=== PATIENT | male | born 1985 ===

== ENCOUNTER 2018-01-05 14:50 | Emergency (ER) | payer MEDICAID ==
[2018-01-05 14:56] VITALS: RESP 16
[2018-01-05] MEDS ORDERED: Iohexol 240 (50 ml) PO STA (16:08)
[2018-01-05] MEDS ORDERED: Sodium Chloride 0.9% 1,000 ML IV ONE (16:08)
--- NOTE | 2018-01-05 16:08 | C.PDOC ---
History Of Present Illness <Berkley Schwartz - Last Filed: 01/05/18 18:46> <Tomasa Livingstonlenore - Last Filed: 01/05/18 21:18> 32 year old male presents to the ED complaining of acute exacerbated epigastric pain since last night. Patient states history of intermittent epigastric pain for 1 year but current pain is more intense than usual. Associated symptoms include hemetemesis but denies clot. He reports he uses Tums daily. Denies any chronic NSAID use or GI medication use. Denies ETOH use. PSH APPY. Denies fever , diarrhea. ACUTE EXAC EPIG PAIN SINCE LAST NIGHT. PS ZACK INTERMIT EPIG PAIN X 1 YR, CURRENT PAIN MORE INTENSE THAN USUAL. +HEMETEMESIS BUT DENIES CLOT. PS USES TUMS DAILY. DENIES CHRONIC NSAID USE. DENIES ETOH. PSH APPY. NO FEVER, DIARRHEA. DENIES GI MED USE EXAM MILD DIST HEENT NEG ABD +EPIG TEND SOFT NO R/G GOOD TURGOR REMAINDER NEG (ZackBerkley) History Per: Patient History/Exam Limitations: no limitations Onset/Duration Of Symptoms: Days Current Symptoms Are (Timing): Still Present Radiation Of Pain To:: None Associated Symptoms: denies: Fever, Chills, Diarrhea <Berkley Schwartz - Last Filed: 01/05/18 18:46> <LollyleeNaheed - Last Filed: 01/05/18 21:18> Time Seen by Provider: 01/05/18 15:34 Chief Complaint (Nursing): Abdominal Pain Past Medical History Reviewed: Historical Data, Nursing Documentation, Vital Signs - Medical History PMH: Chronic Pain (epigastric pain for one year ) Surgical History: Appendectomy Family History: States: No Known Family Hx - Social History Hx Alcohol Use: Yes Hx Substance Use: Yes - Immunization History Hx Tetanus Toxoid Vaccination: No Hx Influenza Vaccination: No Hx Pneumococcal Vaccination: No <Berkley Schwartz - Last Filed: 01/05/18 18:46> Vital Signs: Last Vital Signs Temp 99.4 F 01/05/18 20:13 Pulse 70 01/05/18 20:13 Resp 16 01/05/18 20:13 BP 115/72 01/05/18 20:13 Pulse Ox 98 01/05/18 20:13 Review Of Systems Except As Marked, All Systems Reviewed And Found Negative. Constitutional: Negative for: Fever Gastrointestinal: Positive for: Abdominal Pain (Epigastric pain ), Hematemesis. Negative for: Diarrhea <Berkley Schwartz - Last Filed: 01/05/18 18:46> Physical Exam - Physical Exam Appears: Other (Mild distress) Skin: Warm, Dry, Other (Good turgor ) Head: Atraumatic, Normacephalic Eye(s): bilateral: Normal Inspection, PERRL, EOMI Ear(s): Bilateral: Normal Nose: Normal Oral Mucosa: Moist Neck: Supple Chest: Symmetrical Cardiovascular: Rhythm Regular Respiratory: Normal Breath Sounds, No Rales, No Rhonchi, No Wheezing Gastrointestinal/Abdominal: Soft, Tenderness (epigastric tenderness ), No Guarding, No Rebound Extremity: Normal ROM Neurological/Psych: Oriented x3, Normal Speech Gait: Steady <Berkley Schwartz Last Filed: 01/05/18 18:46> ED Course And Treatment - Laboratory Results Result Diagrams: 01/05/18 16:27 01/05/18 16:27 O2 Sat by Pulse Oximetry: 100 (RA) Pulse Ox Interpretation: Normal - CT Scan/US US ABD Other Rad Studies (CT/US): Read By Radiologist, Radiology Report Reviewed CT/US Interpretation: Accession No. : [id number]. Patient Name / ID : RADHA SANTOS / [id number]. Exam Date : 01/05/2018 16:44:52 ( Approved ). Study Comment : Sex / Age : M / 32Y. Creator : Buddy Rivera MD. Dictator : Buddy Rivera MD. Advertising Sales Assistant : Spike Machine Feeder : Buddy Rivera MD. Approver2 : Report Date : 01/05/2018 17:18:56. My Comment : . Date of service: 01/05/2018. HISTORY: abd pain. COMPARISON: None. TECHNIQUE: Sonographic evaluation of the right upper quadrant of the abdomen. FINDINGS: LIVER: Measures 16.6 cm in length. Patent portal vein. Portal venous flow: Hepatopetal. Unremarkable echogenicity of the liver parenchyma. No mass. No intrahepatic bile duct dilatation. GALLBLADDER: Unremarkable. No gallstones. COMMON BILE DUCT: Measures 2.1 mm. No stones. No dilatation. PANCREAS: Unremarkable as visualized. No mass. No ductal dilatation. RIGHT KIDNEY: Measures 4.1 x 11.3 cm in length. Normal echogenicity. No calculus, mass, or hydronephrosis. AORTA: No aneurysmal dilatation. IVC: Unremarkable. OTHER FINDINGS: None . IMPRESSION: Unremarkable study is <Berkley Schwartz - Last Filed: 01/05/18 18:46> - Laboratory Results Result Diagrams: 01/05/18 19:47 01/05/18 16:27 Pulse Ox Interpretation: Normal Reevaluation Time: 21:07 Reassessment Condition: Improved <Naheed Livingston - Last Filed: 01/05/18 21:18> Progress - Data Reviewed Data Reviewed: Lab, Diagnostic imaging, Old records <ZackBerkley - Last Filed: 01/05/18 18:46> <Naheed Livingston - Last Filed: 01/05/18 21:18> - Re-Evaluation Re-evaluation Note: 01/05/18 18:47 NO RECUR HEMETEMESIS. VSS. CT PENDING (ZackBerkley) Medical Decision Making <Berkley Schwartz - Last Filed: 01/05/18 18:46> <Naheed Livingston - Last Filed: 01/05/18 21:18> Medical Decision Making: Upon provider reevaluation patient is feeling better, is medically stable, and requires no further treatment in the ED at this time. Patient will be discharged home with Rx for protonix . Counseling was provided and all questions were answered regarding diagnosis and need for follow up with the referred clinic. There is agreement to discharge plan. Return if symptoms persist or worsen. (Naheed Livingston) Disposition Counseled Patient/Family Regarding: Studies Performed, Diagnosis - Disposition Disposition Time: 19:00 <ZackBerkley - Last Filed: 01/05/18 18:46> Counseled Patient/Family Regarding: Studies Performed, Diagnosis, Need For Followup, Rx Given <Naheed Livingsotn - Last Filed: 01/05/18 21:18> - Disposition Referrals: [facility] [Outside] [facility] [Outside] Colton Spicer MD [Staff Provider] - Disposition: HOME/ ROUTINE Condition: STABLE Additional Instructions: Please return if symptoms recur Prescriptions: Pantoprazole Sodium [Protonix] 40 mg PO DAILY #15 ect Instructions: Nausea and Vomiting, Adult, Gastritis (DC), Ulcer and Gastritis Diet Forms: [employer] (Yi) - Clinical Impression Clinical Impression: Abdominal pain, Gastritis - Scribe Statement The provider has reviewed the documentation as recorded by the Scribe <Berkley Schwartz - Last Filed: 01/05/18 18:46> <Naheed Livingston - Last Filed: 01/05/18 21:18> - Scribe Statement Jesika Hyman All medical record entries made by the Scribe were at my direction and personally dictated by me. I have reviewed the chart and agree that the record accurately reflects my personal performance of the history, physical exam, medical decision making, and the department course for this patient. I have also personally directed, reviewed, and agree with the discharge instructions and disposition. (Berkley Schwartz) Physician Patient Turnover Patient Signed Over To: Naheed Livingstno Handoff Comments: SHAWNA VALDEZ, ANTHONYO <Berkley Schwartz - Last Filed: 01/05/18 18:46>
[2018-01-05] MEDS ORDERED: Morphine 4 MG/ML VIAL ONE (16:30)
[2018-01-05] MEDS ORDERED: Iohexol 240 (50 ml) ONE (16:30)
[2018-01-05] MEDS ORDERED: Sodium Chloride 0.9% 1,000 ML ONE (16:31)
[2018-01-05 16:33] LABS: BASO % 0.1 % (0.0-2.0); HEMOGLOBIN 16.9 g/dL (12.0-18.0); LYMPH # 0.6 K/uL (1.0-4.3); MEAN CELL VOLUME 91.5 fL (80.0-94.0); MEAN CORPUSCULAR HEMOGLOBIN 32.4 pg (27.0-31.0); MEAN CORPUSCULAR HGB CONC 35.5 g/dL (33.0-37.0); MEAN PLATELET VOLUME 9.8 fL (7.2-11.7); MONO # 0.4 K/uL (0.0-0.8); MONO % 3.2 % (0.0-10.0); NEUT # 10.9 K/uL (1.8-7.0); NEUT % 91.7 % (50.0-75.0); PLATELET COUNT 164 K/uL (130-400); RBC 5.21 Mil/uL (4.40-5.90); RED CELL DISTRIBUTION WIDTH 13.9 % (11.5-14.5); WHITE BLOOD COUNT 11.9 K/uL (4.8-10.8)
[2018-01-05 16:57] LABS: ALB/GLOB RATIO 1.5 (1.0-2.1); ALBUMIN 5.4 g/dL (3.5-5.0); ALT/SGPT 37 U/L (21-72); AST/SGOT 22 U/L (17-59); BLOOD UREA NITROGEN 18 mg/dL (9-20); CALCIUM 10.5 mg/dl (8.6-10.4); GFR AFRICAN-AMERICAN > 60; GFR NON-AFRICAN AMERICAN > 60; LIPASE 130 U/L (23-300)
--- NOTE | 2018-01-05 17:20 | US ---
Date of service: 01/05/2018 HISTORY: abd pain COMPARISON: None. TECHNIQUE: Sonographic evaluation of the right upper quadrant of the abdomen. FINDINGS: LIVER: Measures 16.6 cm in length. Patent portal vein. Portal venous flow: Hepatopetal. Unremarkable echogenicity of the liver parenchyma. No mass. No intrahepatic bile duct dilatation. GALLBLADDER: Unremarkable. No gallstones. COMMON BILE DUCT: Measures 2.1 mm. No stones. No dilatation. PANCREAS: Unremarkable as visualized. No mass. No ductal dilatation. RIGHT KIDNEY: Measures 4.1 x 11.3 cm in length. Normal echogenicity. No calculus, mass, or hydronephrosis. AORTA: No aneurysmal dilatation. IVC: Unremarkable. OTHER FINDINGS: None . IMPRESSION: Unremarkable study is
[2018-01-05] MEDS ORDERED: Iodixanol 320 MG/ML 100 ML BOTTLE IV ONE (18:30)
[2018-01-05 18:44] LABS: LYMPHOCYTE 2 % (20-40); MONOCYTE 2 % (0-10); NEUTROPHIL 96 % (50-75); PLATELET ESTIMATE NORMAL (NORMAL); TOTAL CELLS COUNTED 100
[2018-01-05 18:55] LABS: URINE BACTERIA OCC (<OCC); URINE BILIRUBIN NEGATIVE (NEGATIVE); URINE BLOOD NEGATIVE (NEGATIVE); URINE CLARITY Clear (Clear); URINE COLOR Yellow (YELLOW); URINE GLUCOSE (UA) NORMAL (Normal); URINE LEUKOCYTE ESTERASE TRACE Leu/uL (Negative); URINE PROTEIN 1+ mg/dL (NEGATIVE); URINE UROBILINOGEN NORMAL mg/dL (0.2-1.0)
[2018-01-05 19:50] LABS: HEMOGLOBIN 15.1 g/dL (12.0-18.0); MEAN CELL VOLUME 93.4 fL (80.0-94.0); MEAN CORPUSCULAR HEMOGLOBIN 32.3 pg (27.0-31.0); MEAN CORPUSCULAR HGB CONC 34.6 g/dL (33.0-37.0); MEAN PLATELET VOLUME 9.6 fL (7.2-11.7); RBC 4.69 Mil/uL (4.40-5.90); RED CELL DISTRIBUTION WIDTH 13.9 % (11.5-14.5); WHITE BLOOD COUNT 11.1 K/uL (4.8-10.8)
[2018-01-05 20:14] VITALS: BP 115/72; PULSE 70; TEMP 99.4; O2SAT 98
--- NOTE | 2018-01-06 09:25 | CT ---
Date of service: 01/05/2018 PROCEDURE: CT Abdomen and Pelvis with intravenous contrast HISTORY: Abdominal pain. COMPARISON: Ultrasound dated 01/05/2018 TECHNIQUE: Multiple contiguous axial images were performed through the abdomen and pelvis with the use of intravenous contrast. Subsequently, sagittal and coronal reformatted images were obtained. Radiation dose: Total exam DLP = 317 mGy-cm. This CT exam was performed using one or more of the following dose reduction techniques: Automated exposure control, adjustment of the mA and/or kV according to patient size, and/or use of iterative reconstruction technique. FINDINGS: LOWER THORAX: Unremarkable. LIVER: Unremarkable. No gross lesion or ductal dilatation. GALLBLADDER AND BILE DUCTS: Unremarkable. PANCREAS: Unremarkable. No gross lesion or ductal dilatation. SPLEEN: Unremarkable. ADRENALS: Unremarkable. No mass. KIDNEYS AND URETERS: Unremarkable. No hydronephrosis. No solid mass. VASCULATURE: Unremarkable. No aortic aneurysm. BOWEL: Unremarkable. No obstruction. No gross mural thickening. Under distended transverse and descending colon. APPENDIX: Not well identified. PERITONEUM: Unremarkable. No free fluid. No free air. LYMPH NODES: Unremarkable. No enlarged lymph nodes. BLADDER: Unremarkable. REPRODUCTIVE: Unremarkable. BONES: No acute fracture. OTHER FINDINGS: None. IMPRESSION: Negative acute. Appendix not well identified. These findings were preliminarily reported at 8:29 p.m. on 01/05/[address] Jenaro Diamond from [facility].
== END 2018-01-05 21:32 | disposition home or self-care (01) ==
LOC: C.ER 14:50
DX: K29.70 Gastritis, unspecified, without bleeding (principal); R10.13 Epigastric pain
CPT/HCPCS: 74177; 76705; 80053; 81001; 83690; 85025; 85027; 96374; 96375; 99284; C9113; J2270; J2405; J7030; Q9966; Q9967

== ENCOUNTER 2018-03-12 23:21 | Inpatient (IN) | payer SELFPAY ==
[2018-03-12 23:54] LABS: BASO # 0.1 K/uL (0.0-0.2); BASO % 0.4 % (0.0-2.0); HEMOGLOBIN 17.6 g/dL (12.0-18.0); LYMPH # 1.3 K/uL (1.0-4.3); LYMPH % 8.8 % (20.0-40.0); MEAN CELL VOLUME 92.7 fL (80.0-94.0); MEAN CORPUSCULAR HEMOGLOBIN 32.2 pg (27.0-31.0); MEAN CORPUSCULAR HGB CONC 34.7 g/dL (33.0-37.0); MEAN PLATELET VOLUME 10.2 fL (7.2-11.7); MONO # 1.2 K/uL (0.0-0.8); MONO % 8.2 % (0.0-10.0); NEUT # 12.1 K/uL (1.8-7.0); NEUT % 82.6 % (50.0-75.0); NRBC % 0.1 % (0.0-2.0); PLATELET COUNT 203 K/uL (130-400); RBC 5.45 Mil/uL (4.40-5.90); WHITE BLOOD COUNT 14.6 K/uL (4.8-10.8)
[2018-03-12] MEDS ORDERED: Sodium Chloride 0.9% 1,000 ML IV ONE (23:58)
--- NOTE | 2018-03-12 23:58 | C.PDOC ---
History Of Present Illness 32 year old male presents to the ED c/o abdominal pain associated with nausea, vomit, and decreased PO intake that started yesterday. Patient reports he ate shrimp from an outside source. Patient also reports feeling chest discomfort with deep breathing that has since resolved. Patient denies fever, chills, diarrhea, recent travel, sick contacts, rash. Time Seen by Provider: 03/12/18 23:57 Chief Complaint (Nursing): Abdominal Pain History Per: Patient History/Exam Limitations: no limitations Onset/Duration Of Symptoms: Days Current Symptoms Are (Timing): Still Present Context: Food Severity: Moderate Pain Scale Rating Of: 4 Location Of Pain/Discomfort: Diffuse Radiation Of Pain To:: None Quality Of Discomfort: Dull, Aching Associated Symptoms: Nausea, Vomiting, Loss Of Appetite. denies: Diarrhea, Urinary Symptoms Exacerbating Factors: Food Alleviating Factors: None Last Bowel Movement: Today Recent travel outside of the [place]: No Additional History Per: Patient, Family Past Medical History Reviewed: Historical Data, Nursing Documentation, Vital Signs Vital Signs: Last Vital Signs Temp 98.1 F 03/12/18 23:22 Pulse 122 H 03/12/18 23:22 Resp 22 03/12/18 23:22 BP 117/84 03/12/18 23:22 Pulse Ox 96 03/12/18 23:22 - Medical History PMH: Chronic Pain (epigastric pain for one year ) Denies: Chronic Kidney Disease Surgical History: Appendectomy Family History: States: Unknown Family Hx - Social History Hx Alcohol Use: Yes Hx Substance Use: Yes - Immunization History Hx Tetanus Toxoid Vaccination: No Hx Influenza Vaccination: No Hx Pneumococcal Vaccination: No Review Of Systems Constitutional: Negative for: Fever, Chills ENT: Negative for: Throat Pain Cardiovascular: Negative for: Chest Pain Respiratory: Negative for: Shortness of Breath Gastrointestinal: Positive for: Nausea, Vomiting, Abdominal Pain. Negative for: Diarrhea Genitourinary: Negative for: Dysuria, Hematuria Musculoskeletal: Negative for: Back Pain Skin: Negative for: Rash Neurological: Negative for: Weakness Psych: Negative for: Anxiety Physical Exam - Physical Exam Appears: Non-toxic, No Acute Distress Skin: Warm, Dry Head: Normacephalic Eye(s): bilateral: Normal Inspection Oral Mucosa: Moist Neck: Supple Chest: Symmetrical Cardiovascular: Rhythm Regular Respiratory: No Rales, No Rhonchi, No Wheezing Gastrointestinal/Abdominal: Soft, Tenderness (mid epigastric), No Guarding, No Rebound Back: Normal Inspection Extremity: Normal ROM Extremity: Bilateral: Atraumatic, Normal Color And Temperature, Normal ROM Neurological/Psych: Oriented x3, Normal Speech, Normal Cognition Gait: Steady ED Course And Treatment - Laboratory Results Result Diagrams: 03/12/18 23:49 03/12/18 23:49 ECG: Interpreted By Me, Viewed By Me ECG Rhythm: Sinus Rhythm (103), Nonspecific Changes O2 Sat by Pulse Oximetry: 96 (ON RA) Pulse Ox Interpretation: Normal Progress Note: Plan: - CT abd/pelvis. - EKG. - Labs. - CXR. - Protonix 40 mg IVP. - IV fluids. - Toradol 30 mg IVP. - Zofran 4 mg IVP. - UA Disposition Discussed With DrJami: Giselle Castro Comment: accepted the pt on his service and took over the care at 6:20AM Doctor Will See Patient In The: Hospital Counseled Patient/Family Regarding: Studies Performed, Diagnosis - Disposition Disposition: HOSPITALIZED Disposition Time: 23:57 Condition: GUARDED Forms: Immunovaccine (Salvadorean) - Clinical Impression Clinical Impression: Abdominal pain, Pneumomediastinum - Scribe Statement The provider has reviewed the documentation as recorded by the Scribe Kings H[place] All medical record entries made by the Scribe were at my direction and personally dictated by me. I have reviewed the chart and agree that the record accurately reflects my personal performance of the history, physical exam, medical decision making, and the department course for this patient. I have also personally directed, reviewed, and agree with the discharge instructions and disposition. Decision To Admit - Pt Status Changed To: Hospital Disposition Of: Inpatient - Admit Certification Admit to Inpatient:: After my assessment, the patient will require hospitalization for at least two midnights. This is because of the severity of symptoms shown, intensity of services needed, and/or the medical risk in this patient being treated as an outpatient. - InPatient: Physician Admission Certification:: After my assessment, the patient will require hospitalization for at least two midnights. This is because of the severity of symptoms shown, intensity of services needed, and/or the medical risk in this patient being treated as an outpatient. - . Bed Request Type: Regular Admitting Physician: Giselle Castro Patient Diagnosis: Abdominal pain, Pneumomediastinum
[2018-03-13 00:22] LABS: CALCIUM 11.1 mg/dl (8.6-10.4)
[2018-03-13 00:42] LABS: ALB/GLOB RATIO 1.4 (1.0-2.1)
[2018-03-13 00:56] LABS: BANDS 1 % (0-2); BASOPHIL 1 % (0-2); LYMPHOCYTE 9 % (20-40); MONOCYTE 6 % (0-10); NEUTROPHIL 82 % (50-75); PLATELET ESTIMATE NORMAL (NORMAL); REACTIVE LYMPHOCYTES 1 % (0-0); TOTAL CELLS COUNTED 100
[2018-03-13] MEDS ORDERED: Iodixanol 320 MG/ML 100 ML BOTTLE IV ONE (01:20)
[2018-03-13] MEDS ORDERED: Sodium Chloride 0.9% 2,000 ML IV ONE (02:39)
[2018-03-13] MEDS ORDERED: Sodium Chloride 0.9% 1,000 ML IV ONE (04:36)
[2018-03-13] MEDS ORDERED: Iohexol 240 (50 ml) PO ONE ×2 (04:36→12:00)
[2018-03-13] MEDS ORDERED: Iohexol 240 (50 ml) ONE (04:41)
[2018-03-13] MEDS ORDERED: Piperacillin/Tazobact 3.375 gm 100 ML IVPB STA (06:02)
[2018-03-13] MEDS ORDERED: Piperacillin/Tazobact 3.375 gm 100 ML IVPB ONE (06:16)
[2018-03-13] MEDS ORDERED: metroNIDAZOLE IV 500 mg/100 ml 500 MG/100 ML BAG IVPB SCH (06:30)
[2018-03-13 06:31] LABS: SQUAMOUS EPITHIAL < 1 /hpf (0-5); URINE BILIRUBIN NEGATIVE (NEGATIVE); URINE BLOOD NEGATIVE (NEGATIVE); URINE CLARITY Clear (Clear); URINE COLOR Yellow (YELLOW); URINE GLUCOSE (UA) NORMAL (Normal); URINE LEUKOCYTE ESTERASE NEG Leu/uL (Negative); URINE PROTEIN 1+ mg/dL (NEGATIVE); URINE UROBILINOGEN NORMAL mg/dL (0.2-1.0)
--- NOTE | 2018-03-13 06:54 | RAD ---
Date of service: 03/13/2018 HISTORY: chest discomfort COMPARISON: No prior. FINDINGS: LUNGS: No active pulmonary disease. PLEURA: No significant pleural effusion identified, no pneumothorax apparent. CARDIOVASCULAR: No atherosclerotic calcification present Normal. OSSEOUS STRUCTURES: No significant abnormalities. VISUALIZED UPPER ABDOMEN: Normal. OTHER FINDINGS: None. IMPRESSION: No active disease.
[2018-03-13] MEDS ORDERED: metroNIDAZOLE IV 500 mg/100 ml 500 MG/100 ML BAG IVPB STA (07:24)
--- NOTE | 2018-03-13 08:25 | RAD ---
Neck soft tissue HISTORY: Pneumomediastinum. COMPARISON: None available. FINDINGS: Air within the soft tissues of the neck bilaterally on the frontal view which may be the sequelae of underlying pneumomediastinum. Subtle lucency along the left heart border and aorta which may represent pneumomediastinum. Correlation with chest CT is recommended for further evaluation if clinically indicated. Questionable lucency at the left lung apex which may be related to patient positioning however subtle tiny left apical pneumothorax cannot be excluded. Repeat study and or dedicated chest PA and lateral view is recommended. Contrast seen extending through the esophagus into the proximal stomach without evidence of leak or extravasation. Heart size within normal limits. Impression: Air within the soft tissues of the neck bilaterally on the frontal view which may be the sequelae of underlying pneumomediastinum. Subtle lucency along the left heart border and aorta which may represent pneumomediastinum. Correlation with chest CT is recommended for further evaluation if clinically indicated. Questionable lucency at the left lung apex which may be related to patient positioning however subtle tiny left apical pneumothorax cannot be excluded. Repeat study and or dedicated chest PA and lateral view is recommended. A preliminary report was generated at 5:28 a.m. on 03/13/[address] Alli Salinas from [facility].
--- NOTE | 2018-03-13 09:09 | CP.PCM.CON ---
History of Present Illness - History of Present Illness History of Present Illness: Asked by Dr. Castro for a GI consultation on this patient. 32 year old male without significant past medical history who presents to hospital with complaint of sudden onset nausea and vomiting which began yesterday at 10 pm. Prior to this he was in usual state of health. He reports eating buffalo wings and shrimp prior to symptom onset along with 1 beer and started developing epigastric discomfort with nearly 30 episodes of vomiting and severe retching. Since arrival to hospital he has not had any further vomiting. He denies fever/chills, weight loss, rectal bleeding, diarrhea, weight loss, or change in bowel habits. No prior endoscopic evaluation. Of note, patient does report intermittent epigastric pain for the past 3 years which is relieved with use of jose seltzer and warm bath. Review of vitals from this morning are normal. Social history: social marijuana use, social ETOH use Family history: reviewed, no history of GI malignancies Review of Systems - Review of Systems Review of Systems: - All other comprehensive 12 point review of systems performed, negative - Cardiovascular Cardiovascular: absent: Acrocyanosis, Chest Pain, Chest Pain at Rest, Chest Pain with Activity, Claudication, Diaphoresis, Dyspnea, Dyspnea on Exertion, Edema, Irregular Heart Rhythm, Pain Radiating to Arm/Neck/Jaw, Leg Edema, Leg Ulcers, Lightheadedness, Orthopnea, Palpitations, Paroxysmal Nocturnal Dyspnea, Pedal Edema, Radiating Pain, Rapid Heart Rate, Slow Heart Rate, Syncope, Other - Respiratory Respiratory: Pain on Inspiration - Gastrointestinal Gastrointestinal: Abdominal Pain, Nausea, Vomiting - Musculoskeletal Musculoskeletal: absent: Abnormal Gait, Arthralgias, Atrophy, Back Pain, Deformi ty, Joint Swelling, Limited Range of Motion, Loss of Height, Muscle Cramps, Muscle Weakness, Myalgias, Neck Pain, Numbness, Radiating Pain into Limb, Stiffness, Tingling, Other - Neurological Neurological: absent: Abnormal Gait, Abnormal Hearing, Abnormal Movements, Abnormal Speech, Behavioral Changes, Burning Sensations, Confusion, Convulsions, Disequilibrium, Dizziness, Numbness, Focal Weakness, Frequent Falls, Headaches, Lack of Coordination, Loss of Vision, Memory Loss, Paresthesias, Radicular Pain, Restless Legs, Sensory Deficit, Syncope, Tingling, Tremor, Vertigo, Weakness, Other Visual Disturbances, Other Past Patient History - Infectious Disease Hx of Infectious Diseases: None - Past Social History Smoking Status: Never Smoked - CARDIAC Hx Cardiac Disorders: No - PULMONARY Hx Respiratory Disorders: No - NEUROLOGICAL Hx Neurological Disorder: No - HEENT Hx HEENT Problems: No - RENAL Hx Chronic Kidney Disease: No - ENDOCRINE/METABOLIC Hx Endocrine Disorders: No - HEMATOLOGICAL/ONCOLOGICAL Hx Blood Disorders: No - INTEGUMENTARY Hx Dermatological Problems: No - MUSCULOSKELETAL/RHEUMATOLOGICAL Hx Musculoskeletal Disorders: No - GASTROINTESTINAL Hx Gastrointestinal Disorders: No - GENITOURINARY/GYNECOLOGICAL Hx Genitourinary Disorders: No - PSYCHIATRIC Hx Substance Use: Yes - SURGICAL HISTORY Hx Appendectomy: Yes - ANESTHESIA Hx Anesthesia: Yes Hx Anesthesia Reactions: No Meds Allergies/Adverse Reactions: Allergies Allergy/AdvReac Type Severity Reaction Status Date / Time No Known Allergies Allergy Verified 03/12/18 23:29 - Medications Medications: Current Medications Metronidazole (Flagyl) 500 mg in 100 mls @ 100 mls/hr IVPB Q8H RANDALL; Protocol Piperacillin Sod/Tazobactam Sod (Zosyn 3.375 Gm Iv Premix) 3.375 gm in 50 mls @ 100 mls/hr IVPB Q6H RANDALL; Protocol Lactated Ringer's (Lactated Ringer's) 1,000 mls @ 125 mls/hr IV .Q8H RANDALL Physical Exam - Constitutional Appears: Non-toxic, No Acute Distress - Head Exam Head Exam: NORMAL INSPECTION - Eye Exam Eye Exam: EOMI, Normal appearance - ENT Exam ENT Exam: Mucous Membranes Moist - Neck Exam Neck exam: Positive for: Full Rom Additional comments: + R sided minimal crepitus on neck and supraclavicular region - Respiratory Exam Respiratory Exam: Clear to Auscultation Bilateral - Cardiovascular Exam Cardiovascular Exam: REGULAR RHYTHM, +S1, +S2 - GI/Abdominal Exam GI & Abdominal Exam: Normal Bowel Sounds, Soft Additional comments: non tender to palpation in 4 quadrants no palpable hepato/splenomegaly - Extremities Exam Extremities exam: Positive for: normal inspection - Neurological Exam Neurological exam: Alert, CN II-XII Intact, Oriented x3, Reflexes Normal - Psychiatric Exam Psychiatric exam: Normal Affect, Normal Mood - Skin Skin Exam: Dry, Intact, Normal Color, Warm Additional comments: + tattoos on anterior chest and upper extremity Results - Vital Signs Recent Vital Signs: Last Vital Signs Temp 98.4 F 03/13/18 07:21 Pulse 71 03/13/18 08:49 Resp 18 03/13/18 08:49 BP 111/67 03/13/18 08:49 Pulse Ox 99 03/13/18 08:49 - Labs Result Diagrams: 03/12/18 23:49 03/12/18 23:49 Labs: Laboratory Results - last 24 hr 03/12/18 03/12/18 03/13/18 23:49 23:49 06:18 WBC 14.6 H RBC 5.45 Hgb 17.6 D Hct 50.5 MCV 92.7 MCH 32.2 H MCHC 34.7 RDW 14.0 Plt Count 203 MPV 10.2 Neut % (Auto) 82.6 H Lymph % (Auto) 8.8 L [place] % (Auto) 8.2 Eos % (Auto) 0.0 Baso % (Auto) 0.4 Neut # (Auto) 12.1 H Lymph # (Auto) 1.3 [place] # (Auto) 1.2 H Eos # (Auto) 0.0 Baso # (Auto) 0.1 Neutrophils % (Manual) 82 H Band Neutrophils % 1 Lymphocytes % (Manual) 9 L Reactive Lymphs % 1 H Monocytes % (Manual) 6 Basophils % (Manual) 1 Platelet Estimate Normal Sodium 143 Potassium 4.5 Chloride 95 L Carbon Dioxide 25 Anion Gap 27 H BUN 35 H Creatinine 1.7 H Est GFR ( Amer) 57 Est GFR (Non-Af Amer) 47 Random Glucose 155 H Calcium 11.1 H Total Bilirubin 1.2 AST 35 ALT 29 Alkaline Phosphatase 57 Total Protein 10.4 H Albumin 6.0 H Globulin 4.4 H Albumin/Globulin Ratio 1.4 Lipase 111 Urine Color Yellow Urine Clarity Clear Urine pH 5.0 Ur Specific [place] 1.030 Urine Protein 1+ H Urine Glucose (UA) Normal Urine Ketones Trace Urine Blood Negative Urine Nitrate Negative Urine Bilirubin Negative Urine Urobilinogen Normal Ur Leukocyte Esterase Neg Urine WBC (Auto) < 1 Urine RBC (Auto) 1 Ur Squamous Epith Cells < 1 Assessment & Plan - Assessment and Plan (Free Text) Assessment: Abdominal pain, nausea, vomiting - sudden onset likely secondary to contaminated food source CT imaging reviewed by me showing pneumomediastinum - differential includes pneumothorax vs boerhaave's given multiple vomiting episodes with retching Neck imaging shows contrast flowing from esophagus to stomach without presence of leak/extravasation Plan: - NPO - Anti-emetic therapy PRN - Continue with antibiotic therapy - Continue with IVF hydration, supportive care - PPI therapy - Suggest CT surgical consultation and follow up recommendations - No role for endoscopic evaluation given clinical scenario, no further planned GI intervention. Suggest additional GI follow up as outpatient given complaint of chronic abdominal pain. Will sign off case, please reconsult as necessary, thank you.
--- NOTE | 2018-03-13 09:37 | CP.PCM.CON ---
<Rosemary Guardado - Last Filed: 03/13/18 19:26> History of Present Illness - History of Present Illness History of Present Illness: General surgery consult note for Dr. Molina Consulted for: pneumomediastinum Pt is a 32M with PMH of gastritis who presented to the ED for severe nausea and vomiting associated with epigastric pain. Patient states that he ate shirmp at a restaurant 36 hours ago and 2-3 hours later started having severe nausea and vomiting. Patient states he vomited approximately 30 times, yellow, non-bloody fluid. Patient states that he also developed epigastric abdominal pain, and came to the ER around 10PM yesterday. patient also notes some back pain in the upper and lower mid back while vomiting, improved now. Patient denies any fevers, diarrhea, chest pain, SOB, melena, hematochezia, last BM was AM and was normal. Pt states that he has a history of GERD and that he chronically wakes up in the AM with pain in his epigastrium that improved with alkaseltzer, was previously prescribed prilosec which helped. No family history of GI pathology, no sick contacts PMH: gastritis PSH: appendectomy ALL: NKDA SOC: denies ETOH, Tobacco, admits to occasional MJ smoking Review of Systems - Review of Systems All systems: reviewed and no additional remarkable complaints except (as per HPI) Past Patient History - Infectious Disease Hx of Infectious Diseases: None - Past Medical History & Family History Past Medical History?: Yes Past Family History: Reviewed and not pertinent - Past Social History Smoking Status: Never Smoked Alcohol: None Drugs: Cannabis - CARDIAC Hx Cardiac Disorders: No - PULMONARY Hx Respiratory Disorders: No - NEUROLOGICAL Hx Neurological Disorder: No - HEENT Hx HEENT Problems: No - RENAL Hx Chronic Kidney Disease: No - ENDOCRINE/METABOLIC Hx Endocrine Disorders: No - HEMATOLOGICAL/ONCOLOGICAL Hx Blood Disorders: No - INTEGUMENTARY Hx Dermatological Problems: No - MUSCULOSKELETAL/RHEUMATOLOGICAL Hx Musculoskeletal Disorders: No - GASTROINTESTINAL Hx Gastrointestinal Disorders: Yes Hx Gastroesophageal Reflux: Yes - GENITOURINARY/GYNECOLOGICAL Hx Genitourinary Disorders: No - PSYCHIATRIC Hx Substance Use: Yes - SURGICAL HISTORY Hx Appendectomy: Yes - ANESTHESIA Hx Anesthesia: Yes Hx Anesthesia Reactions: No Meds Allergies/Adverse Reactions: Allergies Allergy/AdvReac Type Severity Reaction Status Date / Time No Known Allergies Allergy Verified 03/12/18 23:29 - Medications Medications: Current Medications Famotidine (Pepcid) 20 mg IVP DAILY [facility] Metronidazole (Flagyl) 500 mg in 100 mls @ 100 mls/hr IVPB Q8H [facility]; Protocol Piperacillin Sod/Tazobactam Sod (Zosyn 3.375 Gm Iv Premix) 3.375 gm in 50 mls @ 100 mls/hr IVPB Q6H [facility]; Protocol Lactated Ringer's (Lactated Ringer's) 1,000 mls @ 125 mls/hr IV .Q8H [facility] Ondansetron HCl (Zofran Inj) 4 mg IVP Q6H PRN PRN Reason: Nausea/Vomiting Physical Exam - Constitutional Appears: Well, Non-toxic, No Acute Distress - Head Exam Head Exam: ATRAUMATIC, NORMOCEPHALIC - Eye Exam Eye Exam: Normal appearance. absent: Conjunctival injection, Scleral icterus - ENT Exam ENT Exam: Mucous Membranes Moist, Normal Oropharynx - Respiratory Exam Respiratory Exam: NORMAL BREATHING PATTERN. absent: Accessory Muscle Use, Respiratory Distress - Cardiovascular Exam Cardiovascular Exam: RRR - GI/Abdominal Exam GI & Abdominal Exam: Soft, Tenderness (moderate tenderness to palpation in epigastrium and RUQ). absent: Distended, Rebound - Extremities Exam Extremities exam: Positive for: pedal pulses present. Negative for: calf tenderness, pedal edema - Back Exam Back exam: NORMAL INSPECTION. absent: CVA tenderness (L), CVA tenderness (R), vertebral tenderness - Neurological Exam Neurological exam: Alert, Oriented x3 - Psychiatric Exam Psychiatric exam: Normal Affect, Normal Mood - Skin Skin Exam: Dry, Normal Color, Warm Additional comments: no subcutaneous crepitus of the chest, back, or neck Results - Vital Signs Recent Vital Signs: Last Vital Signs Temp 98.4 F 03/13/18 07:21 Pulse 71 03/13/18 08:49 Resp 18 03/13/18 08:49 BP 111/67 03/13/18 08:49 Pulse Ox 99 03/13/18 08:49 - Labs Result Diagrams: 03/13/18 11:11 03/13/18 11:11 Labs: Laboratory Results - last 24 hr 03/12/18 03/12/18 03/13/18 23:49 23:49 06:18 WBC 14.6 H RBC 5.45 Hgb 17.6 D Hct 50.5 MCV 92.7 MCH 32.2 H MCHC 34.7 RDW 14.0 Plt Count 203 MPV 10.2 Neut % (Auto) 82.6 H Lymph % (Auto) 8.8 L [place] % (Auto) 8.2 Eos % (Auto) 0.0 Baso % (Auto) 0.4 Neut # (Auto) 12.1 H Lymph # (Auto) 1.3 [place] # (Auto) 1.2 H Eos # (Auto) 0.0 Baso # (Auto) 0.1 Neutrophils % (Manual) 82 H Band Neutrophils % 1 Lymphocytes % (Manual) 9 L Reactive Lymphs % 1 H Monocytes % (Manual) 6 Basophils % (Manual) 1 Platelet Estimate Normal Sodium 143 Potassium 4.5 Chloride 95 L Carbon Dioxide 25 Anion Gap 27 H BUN 35 H Creatinine 1.7 H Est GFR ( Amer) 57 Est GFR (Non-Af Amer) 47 Random Glucose 155 H Calcium 11.1 H Total Bilirubin 1.2 AST 35 ALT 29 Alkaline Phosphatase 57 Total Protein 10.4 H Albumin 6.0 H Globulin 4.4 H Albumin/Globulin Ratio 1.4 Lipase 111 Urine Color Yellow Urine Clarity Clear Urine pH 5.0 Ur Specific [place] 1.030 Urine Protein 1+ H Urine Glucose (UA) Normal Urine Ketones Trace Urine Blood Negative Urine Nitrate Negative Urine Bilirubin Negative Urine Urobilinogen Normal Ur Leukocyte Esterase Neg Urine WBC (Auto) < 1 Urine RBC (Auto) 1 Ur Squamous Epith Cells < 1 - Imaging and Cardiology CT scan - abdomen Status: Image reviewed by me, Report reviewed by me Additional comment: small bowel intussusception CT scan - pelvis Status: Image reviewed by me, Report reviewed by me Chest x-ray Status: Image reviewed by me, Report reviewed by me Assessment & Plan - Assessment and Plan (Free Text) Assessment: 32M with small bowel intussusception, nausea, vomiting, and pneumomediastinum Plan: Recommend admission to ICU for close monitoring Strict NPO Repeat CT of the chest, abdomen, and pelvis with PO contrast to re-evaluate pneumomediastinum and intussusception Cardiothoracic surgery consult for pneumomediastinum management GI consult for possible esophageal perforation repeat CBC, BMP F/U lactic acid PRN pain and nausea medication, protonix Further surgical planning pending results of tests Discussed with Dr. Tracy Guardado, PGY2 <Trenton Molina - Last Filed: 03/15/18 17:15> Meds - Medications Medications: Current Medications Famotidine (Pepcid) 20 mg IVP DAILY [facility] Last Admin: 03/15/18 09:37 Dose: 20 mg Meropenem 1 gm/ Sodium (Chloride) 100 mls @ 100 mls/hr IVPB Q8H [facility]; Protocol Last Admin: 03/15/18 11:24 Dose: 100 mls/hr Potassium Chloride/Dextrose/Sod Cl (Potassium Chl 20 Meq In D5-1/2ns) 1,000 mls @ 110 mls/hr IV .Q9H6M [facility] Last Admin: 03/15/18 06:00 Dose: 110 mls/hr Metronidazole (Flagyl) 500 mg in 100 mls @ 100 mls/hr IVPB Q8H [facility]; Protocol Morphine Sulfate (Morphine) 2 mg IVP Q4 PRN PRN Reason: Pain, moderate (4-7) Last Admin: 03/15/18 03:34 Dose: 2 mg Ondansetron HCl (Zofran Inj) 4 mg IVP Q6H PRN PRN Reason: Nausea/Vomiting Pantoprazole Sodium (Protonix Inj) 40 mg IVP DAILY [facility] Last Admin: 03/15/18 09:37 Dose: 40 mg Results - Vital Signs Recent Vital Signs: Last Vital Signs Temp 97.6 F 03/15/18 15:16 Pulse 69 03/15/18 15:16 Resp 20 03/15/18 15:16 BP 115/74 03/15/18 15:16 Pulse Ox 96 03/15/18 15:16 - Labs Result Diagrams: 03/15/18 06:15 03/15/18 06:15 Labs: Laboratory Results - last 24 hr 03/15/18 03/15/18 03/15/18 06:15 06:15 06:15 WBC 5.8 RBC 3.90 L Hgb 12.8 Hct 36.2 MCV 92.9 MCH 32.8 H MCHC 35.3 RDW 13.9 Plt Count 108 L MPV 9.4 Neut % (Auto) 67.3 Lymph % (Auto) 20.9 [place] % (Auto) 9.1 Eos % (Auto) 2.3 Baso % (Auto) 0.4 Neut # (Auto) 3.9 Lymph # (Auto) 1.2 [place] # (Auto) 0.5 Eos # (Auto) 0.1 Baso # (Auto) 0.0 Sodium 139 Potassium 4.3 Chloride 103 Carbon Dioxide 28 Anion Gap 13 BUN 18 Creatinine 0.9 Est GFR ( Amer) > 60 Est GFR (Non-Af Amer) > 60 Random Glucose 92 Calcium 9.0 Phosphorus 2.7 Magnesium 2.0 Hepatitis A IgM Ab Negative Hep Bs Antigen Negative Hep B Core IgM Ab Negative Hepatitis C Antibody Negative HIV 1&2 Antibody Screen 03/15/18 06:15 WBC RBC Hgb Hct MCV MCH MCHC RDW Plt Count MPV Neut % (Auto) Lymph % (Auto) [place] % (Auto) Eos % (Auto) Baso % (Auto) Neut # (Auto) Lymph # (Auto) [place] # (Auto) Eos # (Auto) Baso # (Auto) Sodium Potassium Chloride Carbon Dioxide Anion Gap BUN Creatinine Est GFR ( Amer) Est GFR (Non-Af Amer) Random Glucose Calcium Phosphorus Magnesium Hepatitis A IgM Ab Hep Bs Antigen Hep B Core IgM Ab Hepatitis C Antibody HIV 1&2 Antibody Screen Negative Attending/Attestation - Attestation I have personally seen and examined this patient.: Yes I have fully participated in the care of the patient.: Yes I have reviewed all pertinent clinical information: Yes Notes (Text): Pt was seen and examined at bedside Agree with above note and assessment Pt with h/o IVDA with C/o Neck pain No subcut emphysema of neck Labs and Radiology reviewed Ass: Pneumomediastinum due to possible Esophageal injury due to Marijuana use Plan : Keep pt NPO, IVF CT surgery consult Barium swallow in morning IV antibiotics ICU monitoring CXR in am Plan d.w pt in detail Risk and benefit explained in detail.
[2018-03-13] MEDS: Lactated Ringer's 1,000 ML IV SCH ×2 (10:00→20:03)
--- NOTE | 2018-03-13 10:13 | CP.PCM.CON ---
History of Present Illness - History of Present Illness History of Present Illness: Cardiothoracic consult note for Dr. Valenzuela and Dr. Payton (Covering for Dr. Valenzuela) Consulted for: pneumomediastinum Pt is a 32 M with PMH of gastritis who presented to the ED for severe nausea and vomiting associated with epigastric pain. Patient states that he ate shirmp at a restaurant 36 hours ago and 2-3 hours later started having severe nausea and vomiting. Patient states he vomited approximately 30 times, yellow, non-bloody fluid. Patient states that he also developed epigastric abdominal pain, and came to the ER around 10PM yesterday. patient also notes some back pain in the upper and lower mid back while vomiting, improved now. Patient denies any fevers, diarrhea, chest pain, SOB, melena, hematochezia, last BM was AM and was normal. Pt states that he has a history of GERD and that he chronically wakes up in the AM with pain in his epigastrium that improved with alkaseltzer, was previously prescribed prilosec which helped. No family history of GI pathology, no sick contacts PMH: gastritis PSH: appendectomy ALL: NKDA SOC: denies ETOH, Tobacco, admits to occasional MJ smoking Review of Systems - Review of Systems All systems: reviewed and no additional remarkable complaints except (as per HPI) Past Patient History - Infectious Disease Hx of Infectious Diseases: None - Past Medical History & Family History Past Medical History?: Yes Past Family History: Reviewed and not pertinent - Past Social History Smoking Status: Never Smoked Alcohol: None Drugs: Cannabis - CARDIAC Hx Cardiac Disorders: No - PULMONARY Hx Respiratory Disorders: No - NEUROLOGICAL Hx Neurological Disorder: No - HEENT Hx HEENT Problems: No - RENAL Hx Chronic Kidney Disease: No - ENDOCRINE/METABOLIC Hx Endocrine Disorders: No - HEMATOLOGICAL/ONCOLOGICAL Hx Blood Disorders: No - INTEGUMENTARY Hx Dermatological Problems: No - MUSCULOSKELETAL/RHEUMATOLOGICAL Hx Musculoskeletal Disorders: No - GASTROINTESTINAL Hx Gastrointestinal Disorders: Yes Hx Gastroesophageal Reflux: Yes - GENITOURINARY/GYNECOLOGICAL Hx Genitourinary Disorders: No - PSYCHIATRIC Hx Substance Use: Yes - SURGICAL HISTORY Hx Appendectomy: Yes - ANESTHESIA Hx Anesthesia: Yes Hx Anesthesia Reactions: No Meds Allergies/Adverse Reactions: Allergies Allergy/AdvReac Type Severity Reaction Status Date / Time No Known Allergies Allergy Verified 03/12/18 23:29 - Medications Medications: Current Medications Famotidine (Pepcid) 20 mg IVP DAILY [facility] Metronidazole (Flagyl) 500 mg in 100 mls @ 100 mls/hr IVPB Q8H [facility]; Protocol Piperacillin Sod/Tazobactam Sod (Zosyn 3.375 Gm Iv Premix) 3.375 gm in 50 mls @ 100 mls/hr IVPB Q6H [facility]; Protocol Lactated Ringer's (Lactated Ringer's) 1,000 mls @ 125 mls/hr IV .Q8H [facility] Morphine Sulfate (Morphine) 2 mg IVP Q4 PRN PRN Reason: Pain, moderate (4-7) Ondansetron HCl (Zofran Inj) 4 mg IVP Q6H PRN PRN Reason: Nausea/Vomiting Physical Exam - Constitutional Appears: Well, Non-toxic, No Acute Distress - Head Exam Head Exam: ATRAUMATIC, NORMOCEPHALIC - Eye Exam Eye Exam: Normal appearance. absent: Conjunctival injection, Scleral icterus - ENT Exam ENT Exam: Mucous Membranes Moist, Normal Oropharynx - Respiratory Exam Respiratory Exam: NORMAL BREATHING PATTERN. absent: Accessory Muscle Use, Respiratory Distress - Cardiovascular Exam Cardiovascular Exam: RRR - GI/Abdominal Exam GI & Abdominal Exam: Soft, Tenderness (moderate epigastric and RUQ tenderness). absent: Distended, Guarding, Rebound - Extremities Exam Extremities exam: Positive for: pedal pulses present. Negative for: calf tenderness, pedal edema - Back Exam Back exam: NORMAL INSPECTION. absent: CVA tenderness (L), CVA tenderness (R) - Neurological Exam Neurological exam: Alert, Oriented x3 - Psychiatric Exam Psychiatric exam: Normal Affect, Normal Mood - Skin Skin Exam: Dry, Intact, Normal Color, Warm Additional comments: no palpable subcutaneous crepitus of the chest, abdomen, back, or neck Results - Vital Signs Recent Vital Signs: Last Vital Signs Temp 98 F 03/13/18 09:45 Pulse 79 03/13/18 09:45 Resp 20 03/13/18 09:45 BP 132/77 03/13/18 09:45 Pulse Ox 98 03/13/18 09:45 - Labs Result Diagrams: 03/12/18 23:49 03/12/18 23:49 Labs: Laboratory Results - last 24 hr 10/19/18 10/19/18 10/20/18 23:49 23:49 06:18 WBC 14.6 H RBC 5.45 Hgb 17.6 D Hct 50.5 MCV 92.7 MCH 32.2 H MCHC 34.7 RDW 14.0 Plt Count 203 MPV 10.2 Neut % (Auto) 82.6 H Lymph % (Auto) 8.8 L [place] % (Auto) 8.2 Eos % (Auto) 0.0 Baso % (Auto) 0.4 Neut # (Auto) 12.1 H Lymph # (Auto) 1.3 [place] # (Auto) 1.2 H Eos # (Auto) 0.0 Baso # (Auto) 0.1 Neutrophils % (Manual) 82 H Band Neutrophils % 1 Lymphocytes % (Manual) 9 L Reactive Lymphs % 1 H Monocytes % (Manual) 6 Basophils % (Manual) 1 Platelet Estimate Normal Sodium 143 Potassium 4.5 Chloride 95 L Carbon Dioxide 25 Anion Gap 27 H BUN 35 H Creatinine 1.7 H Est GFR ( Amer) 57 Est GFR (Non-Af Amer) 47 Random Glucose 155 H Calcium 11.1 H Total Bilirubin 1.2 AST 35 ALT 29 Alkaline Phosphatase 57 Total Protein 10.4 H Albumin 6.0 H Globulin 4.4 H Albumin/Globulin Ratio 1.4 Lipase 111 Urine Color Yellow Urine Clarity Clear Urine pH 5.0 Ur Specific [place] 1.030 Urine Protein 1+ H Urine Glucose (UA) Normal Urine Ketones Trace Urine Blood Negative Urine Nitrate Negative Urine Bilirubin Negative Urine Urobilinogen Normal Ur Leukocyte Esterase Neg Urine WBC (Auto) < 1 Urine RBC (Auto) 1 Ur Squamous Epith Cells < 1 - Imaging and Cardiology CT scan - abdomen Status: Image reviewed by me, Report reviewed by me CT scan - pelvis Status: Image reviewed by me, Report reviewed by me Chest x-ray Status: Image reviewed by me, Report reviewed by me Assessment & Plan - Assessment and Plan (Free Text) Assessment: 32M with pneumomediastinum, severe nausea and vomiting, small bowel intussusception Plan: NPO CT of the chest with PO contrast, IV contrast if pt's creatinine improves this AM Recommend admission to ICU for close monitoring F/U AM labs F/U GI consult--patient could likely benefit from esophogram depending on CT results F/U general surgery recs IVF Antibiotics PRN pain and nausea medications Surgical planning pending results of CT and clinical status Discussed with Dr. Linn, who agrees with above Rosemary Guardado, PGY2
--- NOTE | 2018-03-13 11:07 | CP.PCM.CON ---
History of Present Illness - History of Present Illness History of Present Illness: 32 y/o male with no significant past medical history except for GERD presents to [facility] with complaint of sudden onset nausea and vomiting which began at 10 pm. h/o eating chicken wings and shrimp prior to symptom onset along with 1 beer and started developing epigastric discomfort with nearly 30 episodes of vomiting and severe retching. (+)pneumomediastinum Social history: social marijuana use, social ETOH use Family history: reviewed, no history of GI malignancies Review of Systems: abdominal pain, no dizziness, all other systems negative Review of Systems - Review of Systems All systems: reviewed and no additional remarkable complaints except - Constitutional Constitutional: As Per HPI Past Patient History - Infectious Disease Hx of Infectious Diseases: None - Tetanus Immunizations Tetanus Immunization: Unknown - Past Medical History & Family History Past Medical History?: Yes Past Family History: Reviewed and not pertinent - Past Social History Smoking Status: Never Smoked Alcohol: None Drugs: Cannabis - CARDIAC Hx Cardiac Disorders: No - PULMONARY Hx Respiratory Disorders: No - NEUROLOGICAL Hx Neurological Disorder: No - HEENT Hx HEENT Problems: No - RENAL Hx Chronic Kidney Disease: No - ENDOCRINE/METABOLIC Hx Endocrine Disorders: No - HEMATOLOGICAL/ONCOLOGICAL Hx Blood Disorders: No - INTEGUMENTARY Hx Dermatological Problems: No - MUSCULOSKELETAL/RHEUMATOLOGICAL Hx Musculoskeletal Disorders: No - GASTROINTESTINAL Hx Gastrointestinal Disorders: Yes Hx Gastroesophageal Reflux: Yes - GENITOURINARY/GYNECOLOGICAL Hx Genitourinary Disorders: No - PSYCHIATRIC Hx Substance Use: Yes - SURGICAL HISTORY Hx Appendectomy: Yes - ANESTHESIA Hx Anesthesia: Yes Hx Anesthesia Reactions: No Meds Allergies/Adverse Reactions: Allergies Allergy/AdvReac Type Severity Reaction Status Date / Time No Known Allergies Allergy Verified 03/12/18 23:29 - Medications Medications: Current Medications Famotidine (Pepcid) 20 mg IVP DAILY [facility] Last Admin: 03/13/18 10:47 Dose: 20 mg Metronidazole (Flagyl) 500 mg in 100 mls @ 100 mls/hr IVPB Q8H [facility]; Protocol Piperacillin Sod/Tazobactam Sod (Zosyn 3.375 Gm Iv Premix) 3.375 gm in 50 mls @ 100 mls/hr IVPB Q6H [facility]; Protocol Lactated Ringer's (Lactated Ringer's) 1,000 mls @ 125 mls/hr IV .Q8H [facility] Last Admin: 03/13/18 10:00 Dose: 125 mls/hr Morphine Sulfate (Morphine) 2 mg IVP Q4 PRN PRN Reason: Pain, moderate (4-7) Ondansetron HCl (Zofran Inj) 4 mg IVP Q6H PRN PRN Reason: Nausea/Vomiting Physical Exam - Head Exam Head Exam: ATRAUMATIC, NORMAL INSPECTION, NORMOCEPHALIC - Eye Exam Eye Exam: EOMI, Normal appearance - ENT Exam ENT Exam: Mucous Membranes Moist - Respiratory Exam Respiratory Exam: Clear to Auscultation Bilateral, NORMAL BREATHING PATTERN - Cardiovascular Exam Cardiovascular Exam: REGULAR RHYTHM, +S1, +S2 - GI/Abdominal Exam GI & Abdominal Exam: Normal Bowel Sounds, Soft, Tenderness - Extremities Exam Extremities exam: Positive for: normal inspection - Back Exam Back exam: absent: CVA tenderness (L), CVA tenderness (R) - Neurological Exam Neurological exam: Alert, CN II-XII Intact, Oriented x3 Results - Vital Signs Recent Vital Signs: Last Vital Signs Temp 98 F 03/13/18 09:45 Pulse 79 03/13/18 09:45 Resp 20 03/13/18 09:45 BP 132/77 03/13/18 09:45 Pulse Ox 98 03/13/18 09:45 - Labs Result Diagrams: 03/13/18 11:11 03/13/18 11:11 Labs: Laboratory Results - last 24 hr 03/12/18 03/12/18 03/13/18 23:49 23:49 06:18 WBC 14.6 H RBC 5.45 Hgb 17.6 D Hct 50.5 MCV 92.7 MCH 32.2 H MCHC 34.7 RDW 14.0 Plt Count 203 MPV 10.2 Neut % (Auto) 82.6 H Lymph % (Auto) 8.8 L [place] % (Auto) 8.2 Eos % (Auto) 0.0 Baso % (Auto) 0.4 Neut # (Auto) 12.1 H Lymph # (Auto) 1.3 [place] # (Auto) 1.2 H Eos # (Auto) 0.0 Baso # (Auto) 0.1 Neutrophils % (Manual) 82 H Band Neutrophils % 1 Lymphocytes % (Manual) 9 L Reactive Lymphs % 1 H Monocytes % (Manual) 6 Basophils % (Manual) 1 Platelet Estimate Normal Sodium 143 Potassium 4.5 Chloride 95 L Carbon Dioxide 25 Anion Gap 27 H BUN 35 H Creatinine 1.7 H Est GFR ( Amer) 57 Est GFR (Non-Af Amer) 47 Random Glucose 155 H Calcium 11.1 H Total Bilirubin 1.2 AST 35 ALT 29 Alkaline Phosphatase 57 Total Protein 10.4 H Albumin 6.0 H Globulin 4.4 H Albumin/Globulin Ratio 1.4 Lipase 111 Urine Color Yellow Urine Clarity Clear Urine pH 5.0 Ur Specific [place] 1.030 Urine Protein 1+ H Urine Glucose (UA) Normal Urine Ketones Trace Urine Blood Negative Urine Nitrate Negative Urine Bilirubin Negative Urine Urobilinogen Normal Ur Leukocyte Esterase Neg Urine WBC (Auto) < 1 Urine RBC (Auto) 1 Ur Squamous Epith Cells < 1 Assessment & Plan - Assessment and Plan (Free Text) Assessment: Pneumomediastinum: asymtomatic -GERD: check H. pylori -LUCILLE: continue IV hydration, check kidney US, avoid nephrotoxic drugs -check utox dvt/pud ppx admitted to ICU for monitoring -continue dvt/pud ppx - Date & Time Date: 03/13/18 Time: 11:08
[2018-03-13 11:23] LABS: BASO % 0.2 % (0.0-2.0); LYMPH # 1.3 K/uL (1.0-4.3); MONO # 0.7 K/uL (0.0-0.8); RED CELL DISTRIBUTION WIDTH 14.5 % (11.5-14.5); WHITE BLOOD COUNT 7.5 K/uL (4.8-10.8)
[2018-03-13 11:29] LABS: EOS % 0.4 % (0.0-4.0); LYMPH % 17.2 % (20.0-40.0); MEAN CORPUSCULAR HEMOGLOBIN 32.9 pg (27.0-31.0); MEAN PLATELET VOLUME 9.8 fL (7.2-11.7); MONO % 9.7 % (0.0-10.0); NEUT # 5.4 K/uL (1.8-7.0); NEUT % 72.5 % (50.0-75.0)
[2018-03-13 11:42] LABS: HEMOGLOBIN 13.2 g/dL (12.0-18.0)
[2018-03-13 11:49] LABS: INR 1.2; PROTHROMBIN TIME 12.7 SECONDS (9.7-12.2)
[2018-03-13 11:56] LABS: ALB/GLOB RATIO 1.7 (1.0-2.1); ALBUMIN 3.8 g/dL (3.5-5.0); ALT/SGPT 28 U/L (21-72); AST/SGOT 18 U/L (17-59); BLOOD UREA NITROGEN 31 mg/dL (9-20); GFR NON-AFRICAN AMERICAN > 60
--- NOTE | 2018-03-13 12:38 | CT ---
Date of service: 03/13/2018 PROCEDURE: CT Abdomen and Pelvis with intravenous contrast HISTORY: mid epigastric pain COMPARISON: None. TECHNIQUE: Multiple contiguous axial images were performed through the abdomen and pelvis with the use of intravenous contrast. Subsequently, sagittal coronal reformatted images were obtained. Radiation dose: Total exam DLP = 445.38 mGy-cm. This CT exam was performed using one or more of the following dose reduction techniques: Automated exposure control, adjustment of the mA and/or kV according to patient size, and/or use of iterative reconstruction technique. FINDINGS: LOWER THORAX: Unremarkable. LIVER: Unremarkable. No gross lesion or ductal dilatation. GALLBLADDER AND BILE DUCTS: Unremarkable. PANCREAS: Unremarkable. No gross lesion or ductal dilatation. SPLEEN: Unremarkable. ADRENALS: Unremarkable. No mass. KIDNEYS AND URETERS: Unremarkable. No hydronephrosis. No solid mass. VASCULATURE: Unremarkable. No aortic aneurysm. BOWEL: Telescoping small bowel loops seen within the upper mid abdomen as demonstrated on series 3 images 79 through 96 concerning for intussusception. Clinical correlation. APPENDIX: Surgical clips at the level of the cecum. Clinical correlation. PERITONEUM: Unremarkable. No free fluid. No free air. LYMPH NODES: Unremarkable. No enlarged lymph nodes. BLADDER: Unremarkable. REPRODUCTIVE: Unremarkable. BONES: No acute fracture. OTHER FINDINGS: Small amount of pneumomediastinum seen adjacent to the esophagus. IMPRESSION: 1. Telescoping small bowel loops seen within the upper mid abdomen as demonstrated on series 3 images 79 through 96 concerning for intussusception. Clinical correlation. 2. Small amount of pneumomediastinum seen adjacent to the esophagus. A preliminary report was generated at 4:06 a.m. on 03/13/[address] Alli Salinas from [employer].
[2018-03-13 13:05] LABS: BARBITURATES, UR NEGATIVE (NEGATIVE); BENZODIAZEPINES, UR NEGATIVE (NEGATIVE)
[2018-03-13] MEDS: Piperacill/Tazo 3.375gm in Dex 3.375 GM/50 ML BAG IVPB SCH ×2 (13:35→19:02)
[2018-03-13 13:41] LABS: PHENCYCLIDINE, UR NEGATIVE (NEGATIVE)
[2018-03-13 13:45] LABS: OPIATES, UR POSITIVE (NEGATIVE)
--- NOTE | 2018-03-13 15:07 | CP.PCM.HP ---
Past Patient History - Infectious Disease Hx of Infectious Diseases: None - Tetanus Immunizations Tetanus Immunization: Unknown - Past Medical History & Family History Past Medical History?: Yes Past Family History: Reviewed and not pertinent - Past Social History Smoking Status: Never Smoked Alcohol: None Drugs: Cannabis - CARDIAC Hx Cardiac Disorders: No - PULMONARY Hx Respiratory Disorders: No - NEUROLOGICAL Hx Neurological Disorder: No - HEENT Hx HEENT Problems: No - RENAL Hx Chronic Kidney Disease: No - ENDOCRINE/METABOLIC Hx Endocrine Disorders: No - HEMATOLOGICAL/ONCOLOGICAL Hx Blood Disorders: No - INTEGUMENTARY Hx Dermatological Problems: No - MUSCULOSKELETAL/RHEUMATOLOGICAL Hx Musculoskeletal Disorders: No - GASTROINTESTINAL Hx Gastrointestinal Disorders: Yes Hx Gastroesophageal Reflux: Yes - GENITOURINARY/GYNECOLOGICAL Hx Genitourinary Disorders: No - PSYCHIATRIC Hx Substance Use: Yes - SURGICAL HISTORY Hx Appendectomy: Yes - ANESTHESIA Hx Anesthesia: Yes Hx Anesthesia Reactions: No Meds Allergies/Adverse Reactions: Allergies Allergy/AdvReac Type Severity Reaction Status Date / Time No Known Allergies Allergy Verified 03/12/18 23:29 Physical Exam - Constitutional Appears: Well - Head Exam Head Exam: ATRAUMATIC, NORMAL INSPECTION, NORMOCEPHALIC - Eye Exam Eye Exam: EOMI, Normal appearance, PERRL Pupil Exam: NORMAL ACCOMODATION, PERRL - ENT Exam ENT Exam: Mucous Membranes Moist, Normal Exam - Neck Exam Neck exam: Positive for: Normal Inspection - Respiratory Exam Respiratory Exam: Decreased Breath Sounds - Cardiovascular Exam Cardiovascular Exam: REGULAR RHYTHM, +S1, +S2 - GI/Abdominal Exam GI & Abdominal Exam: Diminished Bowel Sounds, Soft - Rectal Exam Rectal Exam: Deferred Results - Vital Signs Recent Vital Signs: Last Vital Signs Temp 98 F 03/13/18 09:45 Pulse 79 03/13/18 09:45 Resp 20 03/13/18 09:45 BP 132/77 03/13/18 09:45 Pulse Ox 98 03/13/18 09:45 - Labs Result Diagrams: 03/13/18 11:11 03/13/18 11:11 Labs: Laboratory Results - last 24 hr 03/12/18 03/12/18 03/13/18 23:49 23:49 06:18 WBC 14.6 H RBC 5.45 Hgb 17.6 D Hct 50.5 MCV 92.7 MCH 32.2 H MCHC 34.7 RDW 14.0 Plt Count 203 MPV 10.2 Neut % (Auto) 82.6 H Lymph % (Auto) 8.8 L [place] % (Auto) 8.2 Eos % (Auto) 0.0 Baso % (Auto) 0.4 Neut # (Auto) 12.1 H Lymph # (Auto) 1.3 [place] # (Auto) 1.2 H Eos # (Auto) 0.0 Baso # (Auto) 0.1 Neutrophils % (Manual) 82 H Band Neutrophils % 1 Lymphocytes % (Manual) 9 L Reactive Lymphs % 1 H Monocytes % (Manual) 6 Basophils % (Manual) 1 Differential Comment Platelet Estimate Normal PT INR APTT Sodium 143 Potassium 4.5 Chloride 95 L Carbon Dioxide 25 Anion Gap 27 H BUN 35 H Creatinine 1.7 H Est GFR ( Amer) 57 Est GFR (Non-Af Amer) 47 Random Glucose 155 H Lactic Acid Calcium 11.1 H Total Bilirubin 1.2 AST 35 ALT 29 Alkaline Phosphatase 57 Total Protein 10.4 H Albumin 6.0 H Globulin 4.4 H Albumin/Globulin Ratio 1.4 Lipase 111 Urine Color Yellow Urine Clarity Clear Urine pH 5.0 Ur Specific [place] 1.030 Urine Protein 1+ H Urine Glucose (UA) Normal Urine Ketones Trace Urine Blood Negative Urine Nitrate Negative Urine Bilirubin Negative Urine Urobilinogen Normal Ur Leukocyte Esterase Neg Urine WBC (Auto) < 1 Urine RBC (Auto) 1 Ur Squamous Epith Cells < 1 Urine Opiates Screen Urine Methadone Screen Ur Barbiturates Screen Ur Phencyclidine Scrn Ur Amphetamines Screen U Benzodiazepines Scrn U Oth Cocaine Metabols U Cannabinoids Screen 03/13/18 03/13/18 03/13/18 11:11 11:11 11:11 WBC 7.5 RBC 4.00 L Hgb 13.2 D Hct 37.6 MCV 94.0 MCH 32.9 H MCHC 35.0 RDW 14.5 Plt Count 120 L D MPV 9.8 Neut % (Auto) 72.5 Lymph % (Auto) 17.2 L [place] % (Auto) 9.7 Eos % (Auto) 0.4 Baso % (Auto) 0.2 Neut # (Auto) 5.4 Lymph # (Auto) 1.3 [place] # (Auto) 0.7 Eos # (Auto) 0.0 Baso # (Auto) 0.0 Neutrophils % (Manual) Band Neutrophils % Lymphocytes % (Manual) Reactive Lymphs % Monocytes % (Manual) Basophils % (Manual) Differential Comment Platelet Estimate PT INR APTT Sodium 142 Potassium 3.7 Chloride 103 Carbon Dioxide 28 Anion Gap 14 BUN 31 H Creatinine 1.2 Est GFR ( Amer) > 60 Est GFR (Non-Af Amer) > 60 Random Glucose 102 Lactic Acid 0.8 Calcium 9.0 Total Bilirubin 0.8 AST 18 ALT 28 Alkaline Phosphatase 33 L D Total Protein 6.0 L Albumin 3.8 Globulin 2.2 Albumin/Globulin Ratio 1.7 Lipase Urine Color Urine Clarity Urine pH Ur Specific [place] Urine Protein Urine Glucose (UA) Urine Ketones Urine Blood Urine Nitrate Urine Bilirubin Urine Urobilinogen Ur Leukocyte Esterase Urine WBC (Auto) Urine RBC (Auto) Ur Squamous Epith Cells Urine Opiates Screen Urine Methadone Screen Ur Barbiturates Screen Ur Phencyclidine Scrn Ur Amphetamines Screen U Benzodiazepines Scrn U Oth Cocaine Metabols U Cannabinoids Screen 03/13/18 03/13/18 11:11 12:23 WBC RBC Hgb Hct MCV MCH MCHC RDW Plt Count MPV Neut % (Auto) Lymph % (Auto) [place] % (Auto) Eos % (Auto) Baso % (Auto) Neut # (Auto) Lymph # (Auto) [place] # (Auto) Eos # (Auto) Baso # (Auto) Neutrophils % (Manual) Band Neutrophils % Lymphocytes % (Manual) Reactive Lymphs % Monocytes % (Manual) Basophils % (Manual) Differential Comment Platelet Estimate PT 12.7 H INR 1.2 APTT 33 Sodium Potassium Chloride Carbon Dioxide Anion Gap BUN Creatinine Est GFR ( Amer) Est GFR (Non-Af Amer) Random Glucose Lactic Acid Calcium Total Bilirubin AST ALT Alkaline Phosphatase Total Protein Albumin Globulin Albumin/Globulin Ratio Lipase Urine Color Urine Clarity Urine pH Ur Specific [place] Urine Protein Urine Glucose (UA) Urine Ketones Urine Blood Urine Nitrate Urine Bilirubin Urine Urobilinogen Ur Leukocyte Esterase Urine WBC (Auto) Urine RBC (Auto) Ur Squamous Epith Cells Urine Opiates Screen Positive H Urine Methadone Screen Negative Ur Barbiturates Screen Negative Ur Phencyclidine Scrn Negative Ur Amphetamines Screen Negative U Benzodiazepines Scrn Negative U Oth Cocaine Metabols Negative U Cannabinoids Screen Positive H
[2018-03-13] MEDS: metroNIDAZOLE IV 500 mg/100 ml 500 MG/100 ML BAG IVPB SCH (16:59)
--- NOTE | 2018-03-13 18:00 | CT ---
CT chest abdomen and pelvis HISTORY: Pneumomediastinum. Small bowel intussusception. COMPARISON: 03/13/2018 Technique: Multiple contiguous axial images were performed through the chest abdomen and pelvis without the use of intravenous contrast. Subsequently, sagittal reformatted images were obtained. This CT exam was performed using one or more of the following dose reduction techniques: Automated exposure control, adjustment of the mA and/or kV according to patient size, and/or use of iterative reconstruction technique. Findings: Again seen is extensive pneumomediastinum throughout the mediastinum including at its upper mid and inferior aspects surrounding the vasculature throughout its course as well as the esophagus more posteriorly. No significant axillary adenopathy. No significant mediastinal adenopathy. No pleural or pericardial effusions. Lung cyr are grossly clear. Trachea thru central airways are patent. CT abdomen and pelvis: Limited study without intravenous contrast. In addition, the oral contrast has progressed through the bowel into the colon limiting evaluation at the level of the small bowel. Liver appears preserved. Residual contrast seen within the gallbladder. Spleen is grossly preserved. Adrenal glands are preserved. Pancreas is preserved. Small hiatal hernia. The previously noted area concerning for intussusception is not as well apparent on the current study as the proximal to mid small bowel loops are unopacified as oral contrast has passed into the distal small bowel and colon. No intravenous contrast was given. Given the lack of oral contrast at this level, underlying intussusception cannot entirely be excluded. Continued interval follow-up and/or clinical correlation is recommended. Bilateral kidneys appear grossly preserved. Contrast within the urinary bladder appears grossly preserved. Heterogeneous prostate. Underdistended and or mildly thickened sigmoid colon. Clinical correlation. Appendix not well identified. Suggestion of some surgical clips at the level of the appendix. Few shotty para-aortic and inguinal lymph nodes. Few shotty mesenteric lymph nodes. Degenerative changes visualized osseous structures. Impression: 1. Extensive pneumomediastinum as described above. 2. The previously noted area concerning for intussusception is not as well apparent on the current study as the proximal to mid small bowel loops are unopacified as oral contrast has passed into the distal small bowel and colon. No intravenous contrast was given. Given the lack of oral contrast at this level, underlying intussusception cannot entirely be excluded. Continued interval follow-up and/or clinical correlation is recommended. 3. Underdistended and or mildly thickened sigmoid colon. Clinical correlation. Additional findings as above.
[2018-03-13] MEDS: Meropenem 1 GM in Sodium Chloride 0.9% 100 ML IVPB SCH (20:00)
[2018-03-14] MEDS: metroNIDAZOLE IV 500 mg/100 ml 500 MG/100 ML BAG IVPB SCH ×4 (00:03→23:55)
[2018-03-14] MEDS: Lactated Ringer's 1,000 ML IV SCH (01:50)
[2018-03-14] MEDS: Piperacill/Tazo 3.375gm in Dex 3.375 GM/50 ML BAG IVPB SCH ×2 (01:53→06:02)
[2018-03-14] MEDS: Meropenem 1 GM in Sodium Chloride 0.9% 100 ML IVPB SCH ×3 (02:03→19:01)
[2018-03-14 06:26] LABS: BASO % 0.3 % (0.0-2.0); EOS # 0.1 K/uL (0.0-0.7); EOS % 1.7 % (0.0-4.0); HEMOGLOBIN 13.5 g/dL (12.0-18.0); LYMPH # 1.3 K/uL (1.0-4.3); LYMPH % 21.2 % (20.0-40.0); MEAN CELL VOLUME 93.1 fL (80.0-94.0); MEAN CORPUSCULAR HEMOGLOBIN 32.8 pg (27.0-31.0); MEAN CORPUSCULAR HGB CONC 35.3 g/dL (33.0-37.0); MEAN PLATELET VOLUME 10.1 fL (7.2-11.7); MONO # 0.5 K/uL (0.0-0.8); MONO % 8.5 % (0.0-10.0); NEUT # 4.1 K/uL (1.8-7.0); NEUT % 68.3 % (50.0-75.0); RBC 4.12 Mil/uL (4.40-5.90); RED CELL DISTRIBUTION WIDTH 14.3 % (11.5-14.5)
[2018-03-14 06:41] LABS: BLOOD UREA NITROGEN 22 mg/dL (9-20); CALCIUM 9.2 mg/dl (8.6-10.4); GFR NON-AFRICAN AMERICAN > 60
--- NOTE | 2018-03-14 09:29 | CP.PCM.PN ---
<Rosemary Guardado - Last Filed: 03/14/18 09:27> Subjective - Date & Time of Evaluation Date of Evaluation: 03/14/18 Time of Evaluation: 06:35 - Subjective Subjective: Surgery progress note for Dr. Molina and Dr. Linn Pt seen and examined at bedside this AM. Patient states that he is no longer having pain, denies any SOB, CP, nausea, fevers or chills. States he is hungry Objective - Vital Signs/Intake and Output Vital Signs (last 24 hours): Temp Pulse Resp BP Pulse Ox 97.5 F L 48 L 20 111/69 100 03/14/18 07:00 03/14/18 07:50 03/14/18 07:00 03/14/18 07:00 03/14/18 07:00 Intake and Output: 03/14/18 03/14/18 06:59 18:59 Intake Total 1650 Balance 1650 - Medications Medications: Current Medications Famotidine (Pepcid) 20 mg IVP DAILY [facility] Last Admin: 03/14/18 09:12 Dose: 20 mg Metronidazole (Flagyl) 500 mg in 100 mls @ 100 mls/hr IVPB Q8H [facility]; Protocol Last Admin: 03/14/18 07:40 Dose: 100 mls/hr Piperacillin Sod/Tazobactam Sod (Zosyn 3.375 Gm Iv Premix) 3.375 gm in 50 mls @ 100 mls/hr IVPB Q6H [facility]; Protocol Last Admin: 03/14/18 06:02 Dose: 100 mls/hr Lactated Ringer's (Lactated Ringer's) 1,000 mls @ 125 mls/hr IV .Q8H [facility] Last Admin: 03/14/18 01:50 Dose: Not Given Meropenem 1 gm/ Sodium (Chloride) 100 mls @ 100 mls/hr IVPB Q8H [facility]; Protocol Last Admin: 03/14/18 02:03 Dose: 100 mls/hr Morphine Sulfate (Morphine) 2 mg IVP Q4 PRN PRN Reason: Pain, moderate (4-7) Last Admin: 03/14/18 05:45 Dose: 2 mg Ondansetron HCl (Zofran Inj) 4 mg IVP Q6H PRN PRN Reason: Nausea/Vomiting Pantoprazole Sodium (Protonix Inj) 40 mg IVP DAILY [facility] Pneumococcal Polyvalent Vaccine (Pneumovax 23 Vaccine) 0.5 ml IM .ONCE ONE Stop: 03/15/18 10:01 - Labs Labs: 03/14/18 06:15 03/14/18 06:15 PT 12.7 SECONDS (9.7-12.2) H 03/13/18 11:11 INR 1.2 03/13/18 11:11 APTT 33 SECONDS (21-34) 03/13/18 11:11 - Constitutional Appears: Well, Non-toxic, No Acute Distress - Head Exam Head Exam: ATRAUMATIC, NORMOCEPHALIC - Eye Exam Eye Exam: Normal appearance. absent: Conjunctival injection, Scleral icterus - ENT Exam ENT Exam: Mucous Membranes Moist, Normal Oropharynx - Respiratory Exam Respiratory Exam: NORMAL BREATHING PATTERN. absent: Accessory Muscle Use, Respiratory Distress - Cardiovascular Exam Cardiovascular Exam: RRR - GI/Abdominal Exam GI & Abdominal Exam: Soft. absent: Distended, Tenderness, Rebound - Extremities Exam Extremities Exam: absent: Calf Tenderness, Pedal Edema, Tenderness - Neurological Exam Neurological Exam: Alert, Awake, Oriented x3 - Psychiatric Exam Psychiatric exam: Normal Affect, Normal Mood - Skin Skin Exam: Dry, Intact, Normal Color, Warm Additional comments: no subcutaneous crepitus of the chest, abdomen, back, or neck Assessment and Plan - Assessment and Plan (Free Text) Assessment: 32M with pneumomediastinum, likely esophageal in nature d/t severe vomiting Plan: Barium swallow esophogram CXR today Continue strict NPO Continue to trend CBC/BMP Continue to monitor vitals closely Continue IV anbiotics--follow up ID recs Further surgical planning pending results of CXR/esophogram. Discussed with Dr. Molina and Dr. Kaveh Guardado, PGY2 <Trenton Molina - Last Filed: 03/15/18 17:16> Objective - Vital Signs/Intake and Output Vital Signs (last 24 hours): Temp Pulse Resp BP Pulse Ox 97.6 F 69 20 115/74 96 03/15/18 15:16 03/15/18 15:16 03/15/18 15:16 03/15/18 15:16 03/15/18 15:16 Intake and Output: 03/15/18 03/15/18 06:59 18:59 Intake Total 860 1200 Balance 860 1200 - Medications Medications: Current Medications Famotidine (Pepcid) 20 mg IVP DAILY [facility] Last Admin: 03/15/18 09:37 Dose: 20 mg Meropenem 1 gm/ Sodium (Chloride) 100 mls @ 100 mls/hr IVPB Q8H [facility]; Protocol Last Admin: 03/15/18 11:24 Dose: 100 mls/hr Potassium Chloride/Dextrose/Sod Cl (Potassium Chl 20 Meq In D5-1/2ns) 1,000 mls @ 110 mls/hr IV .Q9H6M [facility] Last Admin: 03/15/18 06:00 Dose: 110 mls/hr Metronidazole (Flagyl) 500 mg in 100 mls @ 100 mls/hr IVPB Q8H [facility]; Protocol Morphine Sulfate (Morphine) 2 mg IVP Q4 PRN PRN Reason: Pain, moderate (4-7) Last Admin: 03/15/18 03:34 Dose: 2 mg Ondansetron HCl (Zofran Inj) 4 mg IVP Q6H PRN PRN Reason: Nausea/Vomiting Pantoprazole Sodium (Protonix Inj) 40 mg IVP DAILY [facility] Last Admin: 03/15/18 09:37 Dose: 40 mg - Labs Labs: 03/15/18 06:15 03/15/18 06:15 PT 12.7 SECONDS (9.7-12.2) H 03/13/18 11:11 INR 1.2 03/13/18 11:11 APTT 33 SECONDS (21-34) 03/13/18 11:11 Attending/Attestation - Attestation I have personally seen and examined this patient.: Yes I have fully participated in the care of the patient.: Yes I have reviewed all pertinent clinical information, including history, physical exam and plan: Yes Notes (Text): Pt was seen and examined at bedside Agree with above note and assessment Pt with Pneumomediastinum Improving clinically C/w NPO, IVF Awaiting CT surgery input Barium swallow in morning IV antibiotics Plan d.w pt in detail Risk and benefit explained in detail.
--- NOTE | 2018-03-14 10:31 | RAD ---
Date of service: 03/14/2018 HISTORY: re-eval pneumomediastinum, ?esophageal perf COMPARISON: No prior. TECHNIQUE: Chest PA and lateral FINDINGS: LUNGS: No active pulmonary disease. Small nodular density at the left lung base likely represents prominent vessel on end. PLEURA: No significant pleural effusion identified. No pneumothorax apparent. CARDIOVASCULAR: No atherosclerotic calcification present Normal. OSSEOUS STRUCTURES: No significant abnormalities. VISUALIZED UPPER ABDOMEN: Normal. OTHER FINDINGS: Persistent silhouetting along the cardiac silhouette suggestive for pneumomediastinum. IMPRESSION: Persistent silhouetting along the cardiac silhouette suggestive for pneumomediastinum.
--- NOTE | 2018-03-14 14:51 | CP.PCM.CON ---
History of Present Illness - History of Present Illness History of Present Illness: 32 M presented to the ED for severe nausea and vomiting associated with epigastric pain. Patient states that after he ate shirmp at a restaurant he vomited approximately 30 times then developed epigastric abdominal pain, and came to the ER Admitted for possible esophageal tear Surgery and GI on board PMH: gastritis PSH: appendectomy ALL: NKDA SOC: denies ETOH, Tobacco, admits to occasional MJ smoking Review of Systems - Review of Systems All systems: reviewed and no additional remarkable complaints except - Constitutional Constitutional: absent: As Per HPI, Anorexia, Chills, Daytime Sleepiness, Excessive Sweating, Fatigue, Fever, Frequent Falls, Headache, Increased Appetite, Lethargy, Malaise, Night Sweats, Snoring, Sleep Apnea, Weight Gain, Weight Loss, Weakness, Other - EENT Eyes: absent: As Per HPI, Blind Spots, Blurred Vision, Change in Vision, Decreased Night Vision, Diplopia, Discharge, Dry Eye, Exophthalmos, Floaters, Irritation, Itchy Eyes, Loss of Peripheral Vision, Pain, Photophobia, Requires Corrective Lenses, Sees Flashes, Spots in Vision, Tunnel Vision, Other Visual Disturbances, Loss of Vision, Other Ears: absent: As Per HPI, Decreased Hearing, Ear Discharge, Ear Pain, Tinnitus, Abnormal Hearing, Disequilibrium, Dizziness, Other Nose/Mouth/Throat: absent: As Per HPI, Epistaxis, Nasal Congestion, Nasal Discharge, Nasal Obstruction, Nasal Trauma, Nose Pain, Post Nasal Drip, Sinus Pain, Sinus Pressure, Bleeding Gums, Change in Voice, Dental Pain, Dry Mouth, Dysphagia, Halitosis, Hoarsness, Lip Swelling, Mouth Lesions, Mouth Pain, Odynophagia, Sore Throat, Throat Swelling, Tongue Swelling, Facial Pain, Neck Pain, Neck Mass, Other - Cardiovascular Cardiovascular: absent: As Per HPI, Acrocyanosis, Chest Pain, Chest Pain at Rest, Chest Pain with Activity, Claudication, Diaphoresis, Dyspnea, Dyspnea on Exertion, Edema, Irregular Heart Rhythm, Pain Radiating to Arm/Neck/Jaw, Leg Edema, Leg Ulcers, Lightheadedness, Orthopnea, Palpitations, Paroxysmal Noc turnal Dyspnea, Pedal Edema, Radiating Pain, Rapid Heart Rate, Slow Heart Rate, Syncope, Other - Respiratory Respiratory: absent: As Per HPI, Cough, Dyspnea, Hemoptysis, Dyspnea on Exertion, Wheezing, Snoring, Stridor, Pain on Inspiration, Chest Congestion, Exc essive Mucous Production, Change in Mucous Color, Pain with Coughing, Other - Gastrointestinal Gastrointestinal: As Per HPI - Genitourinary Genitourinary: absent: As Per HPI, Change in Urinary Stream, Difficulty Urinating, Dysuria, Flank Pain, Hematuria, Pyuria, Nocturia, Urinary Incontinence, Urinary Frequency, Urinary Hesitance, Urinary Urgency, Voiding Freq/Small Amts, Freq UTI, Hx Renal/Bladder Calculi, Hx /Renal Surgery, Bladder Distension, Other - Musculoskeletal Musculoskeletal: absent: As Per HPI, Abnormal Gait, Arthralgias, Atrophy, Back Pain, Deformity, Joint Swelling, Limited Range of Motion, Loss of Height, Muscle Cramps, Muscle Weakness, Myalgias, Neck Pain, Numbness, Radiating Pain into Limb, Stiffness, Tingling, Other - Integumentary Integumentary: absent: As Per HPI, Acne, Alopecia, Bleeding Lesions, Change in Hair, Change in Nails, Change in Pigmentation, Changing Lesions, Dry Skin, Erythema, Furuncle, Hirsutism, Lesions, New Lesions, Non-Healing Lesions, Photosensitivity, Pruritus, Rash, Skin Pain, Skin Ulcer, Sores, Striae, Swelling, Unusual Bruising, Wounds, Jaundice, Other - Neurological Neurological: absent: As Per HPI, Abnormal Gait, Abnormal Hearing, Abnormal M ovements, Abnormal Speech, Behavioral Changes, Burning Sensations, Confusion, Convulsions, Disequilibrium, Dizziness, Numbness, Focal Weakness, Frequent Falls, Headaches, Lack of Coordination, Loss of Vision, Memory Loss, Paresthesias, Radicular Pain, Restless Legs, Sensory Deficit, Syncope, Tingling, Tremor, Vertigo, Weakness, Other Visual Disturbances, Other - Psychiatric Psychiatric: absent: As Per HPI, Abnormal Sleep Pattern, Anhedonia, Anxiety, Auditory Hallucinations, Behavioral Changes, Change in Appetite, Change in Libido, Confusion, Depression, Difficulty Concentrating, Hallucinations, Homicidal Ideation, Hopelessness, Irritability, Memory Loss, Mood Swings, Panic Attacks, Paranoia, Suicidal Ideation, Visual Hallucinations, Tactile Hallucinat ions, Other - Endocrine Endocrine: absent: As Per HPI, Change in Body Appearance, Change in Libido, Cold Intolorance, Deepening of Voice, Excessive Sweating, Fatigue, Flushing, Heat Intolorance, Increase in Ring/Shoe/Hat Size, Palpitations, Polydipsia, Polyphag ia, Polyuria, Other - Hematologic/Lymphatic Hematologic: absent: As Per HPI, Easy Bleeding, Easy Bruising, Lymphadenopathy, Other Past Patient History - Infectious Disease Hx of Infectious Diseases: None - Tetanus Immunizations Tetanus Immunization: Unknown - Past Medical History & Family History Past Medical History?: Yes Past Family History: Reviewed and not pertinent - Past Social History Smoking Status: Never Smoked Alcohol: None Drugs: Cannabis - CARDIAC Hx Cardiac Disorders: No - PULMONARY Hx Respiratory Disorders: No - NEUROLOGICAL Hx Neurological Disorder: No - HEENT Hx HEENT Problems: No - RENAL Hx Chronic Kidney Disease: No - ENDOCRINE/METABOLIC Hx Endocrine Disorders: No - HEMATOLOGICAL/ONCOLOGICAL Hx Blood Disorders: No - INTEGUMENTARY Hx Dermatological Problems: No - MUSCULOSKELETAL/RHEUMATOLOGICAL Hx Musculoskeletal Disorders: No - GASTROINTESTINAL Hx Gastrointestinal Disorders: Yes Hx Gastroesophageal Reflux: Yes - GENITOURINARY/GYNECOLOGICAL Hx Genitourinary Disorders: No - PSYCHIATRIC Hx Substance Use: Yes - SURGICAL HISTORY Hx Appendectomy: Yes - ANESTHESIA Hx Anesthesia: Yes Hx Anesthesia Reactions: No Meds Allergies/Adverse Reactions: Allergies Allergy/AdvReac Type Severity Reaction Status Date / Time No Known Allergies Allergy Verified 03/12/18 23:29 - Medications Medications: Current Medications Famotidine (Pepcid) 20 mg IVP DAILY [facility] Last Admin: 03/14/18 09:12 Dose: 20 mg Metronidazole (Flagyl) 500 mg in 100 mls @ 100 mls/hr IVPB Q8H [facility]; Protocol Last Admin: 03/14/18 07:40 Dose: 100 mls/hr Piperacillin Sod/Tazobactam Sod (Zosyn 3.375 Gm Iv Premix) 3.375 gm in 50 mls @ 100 mls/hr IVPB Q6H [facility]; Protocol Last Admin: 03/14/18 06:02 Dose: 100 mls/hr Meropenem 1 gm/ Sodium (Chloride) 100 mls @ 100 mls/hr IVPB Q8H [facility]; Protocol Last Admin: 03/14/18 11:00 Dose: 100 mls/hr Potassium Chloride/Dextrose/Sod Cl (Potassium Chl 20 Meq In D5-1/2ns) 1,000 mls @ 110 mls/hr IV .Q9H6M [facility] Morphine Sulfate (Morphine) 2 mg IVP Q4 PRN PRN Reason: Pain, moderate (4-7) Last Admin: 03/14/18 05:45 Dose: 2 mg Ondansetron HCl (Zofran Inj) 4 mg IVP Q6H PRN PRN Reason: Nausea/Vomiting Pantoprazole Sodium (Protonix Inj) 40 mg IVP DAILY [facility] Last Admin: 03/14/18 13:00 Dose: 40 mg Pneumococcal Polyvalent Vaccine (Pneumovax 23 Vaccine) 0.5 ml IM .ONCE ONE Stop: 03/15/18 10:01 Physical Exam - Constitutional Appears: Non-toxic, Chronically Ill - Head Exam Head Exam: NORMOCEPHALIC - Eye Exam Eye Exam: absent: Scleral icterus - ENT Exam ENT Exam: Mucous Membranes Dry - Neck Exam Neck exam: Negative for: Lymphadenopathy - Respiratory Exam Respiratory Exam: Decreased Breath Sounds, Clear to Auscultation Bilateral - Cardiovascular Exam Cardiovascular Exam: REGULAR RHYTHM, +S1, +S2 - GI/Abdominal Exam GI & Abdominal Exam: Diminished Bowel Sounds, Soft. absent: Tenderness - Rectal Exam Rectal Exam: Deferred - Exam Exam: NORMAL INSPECTION - Extremities Exam Extremities exam: Negative for: pedal edema - Back Exam Back exam: absent: CVA tenderness (L), CVA tenderness (R) - Neurological Exam Neurological exam: Alert, CN II-XII Intact, Oriented x3, Reflexes Normal - Psychiatric Exam Psychiatric exam: Normal Mood - Skin Skin Exam: Dry Results - Vital Signs Recent Vital Signs: Last Vital Signs Temp 97.5 F L 03/14/18 07:00 Pulse 59 L 03/14/18 11:45 Resp 20 03/14/18 07:00 BP 111/69 03/14/18 07:00 Pulse Ox 100 03/14/18 07:00 - Labs Result Diagrams: 03/14/18 06:15 03/14/18 06:15 Labs: Laboratory Results - last 24 hr 03/14/18 03/14/18 06:15 06:15 WBC 6.0 RBC 4.12 L Hgb 13.5 Hct 38.4 MCV 93.1 MCH 32.8 H MCHC 35.3 RDW 14.3 Plt Count 116 L MPV 10.1 Neut % (Auto) 68.3 Lymph % (Auto) 21.2 [place] % (Auto) 8.5 Eos % (Auto) 1.7 Baso % (Auto) 0.3 Neut # (Auto) 4.1 Lymph # (Auto) 1.3 [place] # (Auto) 0.5 Eos # (Auto) 0.1 Baso # (Auto) 0.0 Sodium 142 Potassium 3.8 Chloride 102 Carbon Dioxide 28 Anion Gap 15 BUN 22 H Creatinine 1.0 Est GFR ( Amer) > 60 Est GFR (Non-Af Amer) > 60 Random Glucose 82 Calcium 9.2 Phosphorus 2.9 Magnesium 2.1 Assessment & Plan (1) Abdominal pain Status: Acute (2) Pneumomediastinum Status: Acute (3) Gastritis Status: Acute - Assessment and Plan (Free Text) Assessment: No evidence of mediastinitis at present s/p perf cont empiric IV antibiotics surgical and GI follow up
[2018-03-14] MEDS: Potassium Ch 20mEq in D5-1/2NS 1,000 ML IV SCH ×2 (15:51→21:23)
--- NOTE | 2018-03-14 18:55 | CP.PCM.PN ---
Subjective - Date & Time of Evaluation Date of Evaluation: 03/14/18 Time of Evaluation: 12:15 - Subjective Subjective: clinically same Objective - Vital Signs/Intake and Output Vital Signs (last 24 hours): Temp Pulse Resp BP Pulse Ox 98.1 F 57 L 20 139/74 97 03/14/18 16:00 03/14/18 16:00 03/14/18 16:00 03/14/18 16:00 03/14/18 16:00 Intake and Output: 03/14/18 03/14/18 06:59 18:59 Intake Total 1650 900 Balance 1650 900 - Medications Medications: Current Medications Famotidine (Pepcid) 20 mg IVP DAILY [facility] Last Admin: 03/14/18 09:12 Dose: 20 mg Metronidazole (Flagyl) 500 mg in 100 mls @ 100 mls/hr IVPB Q8H [facility]; Protocol Last Admin: 03/14/18 15:52 Dose: 100 mls/hr Meropenem 1 gm/ Sodium (Chloride) 100 mls @ 100 mls/hr IVPB Q8H [facility]; Protocol Last Admin: 03/14/18 11:00 Dose: 100 mls/hr Potassium Chloride/Dextrose/Sod Cl (Potassium Chl 20 Meq In D5-1/2ns) 1,000 mls @ 110 mls/hr IV .Q9H6M [facility] Last Admin: 03/14/18 15:51 Dose: 110 mls/hr Morphine Sulfate (Morphine) 2 mg IVP Q4 PRN PRN Reason: Pain, moderate (4-7) Last Admin: 03/14/18 05:45 Dose: 2 mg Ondansetron HCl (Zofran Inj) 4 mg IVP Q6H PRN PRN Reason: Nausea/Vomiting Pantoprazole Sodium (Protonix Inj) 40 mg IVP DAILY [facility] Last Admin: 03/14/18 13:00 Dose: 40 mg Pneumococcal Polyvalent Vaccine (Pneumovax 23 Vaccine) 0.5 ml IM .ONCE ONE Stop: 03/15/18 10:01 - Labs Labs: 03/14/18 06:15 03/14/18 06:15 PT 12.7 SECONDS (9.7-12.2) H 03/13/18 11:11 INR 1.2 03/13/18 11:11 APTT 33 SECONDS (21-34) 03/13/18 11:11 - Constitutional Appears: Well - Head Exam Head Exam: ATRAUMATIC, NORMAL INSPECTION, NORMOCEPHALIC - Eye Exam Eye Exam: EOMI, Normal appearance, PERRL Pupil Exam: NORMAL ACCOMODATION, PERRL - ENT Exam ENT Exam: Mucous Membranes Moist, Normal Exam - Neck Exam Neck Exam: Full ROM, Normal Inspection. absent: Lymphadenopathy - Respiratory Exam Respiratory Exam: Decreased Breath Sounds - Cardiovascular Exam Cardiovascular Exam: REGULAR RHYTHM, +S1, +S2 - GI/Abdominal Exam GI & Abdominal Exam: Soft, Diminished Bowel Sounds - Rectal Exam Rectal Exam: Deferred
[2018-03-15] MEDS: Meropenem 1 GM in Sodium Chloride 0.9% 100 ML IVPB SCH ×3 (03:37→19:12)
[2018-03-15] MEDS: Potassium Ch 20mEq in D5-1/2NS 1,000 ML IV SCH ×2 (06:00→22:23)
[2018-03-15 06:32] LABS: BASO % 0.4 % (0.0-2.0); EOS # 0.1 K/uL (0.0-0.7); EOS % 2.3 % (0.0-4.0); HEMOGLOBIN 12.8 g/dL (12.0-18.0); LYMPH # 1.2 K/uL (1.0-4.3); LYMPH % 20.9 % (20.0-40.0); MEAN CELL VOLUME 92.9 fL (80.0-94.0); MEAN CORPUSCULAR HEMOGLOBIN 32.8 pg (27.0-31.0); MEAN CORPUSCULAR HGB CONC 35.3 g/dL (33.0-37.0); MEAN PLATELET VOLUME 9.4 fL (7.2-11.7); MONO # 0.5 K/uL (0.0-0.8); MONO % 9.1 % (0.0-10.0); NEUT # 3.9 K/uL (1.8-7.0); NEUT % 67.3 % (50.0-75.0); RBC 3.9 Mil/uL (4.40-5.90); RED CELL DISTRIBUTION WIDTH 13.9 % (11.5-14.5); WHITE BLOOD COUNT 5.8 K/uL (4.8-10.8)
[2018-03-15 06:34] LABS: BLOOD UREA NITROGEN 18 mg/dL (9-20); GFR NON-AFRICAN AMERICAN > 60
--- NOTE | 2018-03-15 07:53 | CP.PCM.PN ---
Addendum entered and electronically signed by Caden Perla DO 03/15/18 14:52: pt clear for discharge from surgery remain on liquid diet for 1-2 weeks should be d/c with rx for levofloxacin and clindamycin as per Dr Molina f/u in office with Dr Linn Original Note: <Caden Perla - Last Filed: 03/15/18 07:50> Subjective - Date & Time of Evaluation Date of Evaluation: 03/15/18 Time of Evaluation: 07:51 - Subjective Subjective: General Surgery: Dr Molina Pt S&E. NAEO. Resting comfortably. Pain resolved. Denies fevers, chills, nausea, vomiting, shortness of breath or chest pain. Remains NPO. Objective - Vital Signs/Intake and Output Vital Signs (last 24 hours): Temp Pulse Resp BP Pulse Ox 97.6 F 50 L 20 101/50 L 99 03/15/18 04:28 03/15/18 04:28 03/15/18 04:28 03/15/18 04:28 03/15/18 04:28 Intake and Output: 03/15/18 03/15/18 06:59 18:59 Intake Total 860 Balance 860 - Medications Medications: Current Medications Famotidine (Pepcid) 20 mg IVP DAILY [facility] Last Admin: 03/14/18 09:12 Dose: 20 mg Metronidazole (Flagyl) 500 mg in 100 mls @ 100 mls/hr IVPB Q8H [facility]; Protocol Last Admin: 03/14/18 23:55 Dose: 100 mls/hr Meropenem 1 gm/ Sodium (Chloride) 100 mls @ 100 mls/hr IVPB Q8H [facility]; Protocol Last Admin: 03/15/18 03:37 Dose: 100 mls/hr Potassium Chloride/Dextrose/Sod Cl (Potassium Chl 20 Meq In D5-1/2ns) 1,000 mls @ 110 mls/hr IV .Q9H6M [facility] Last Admin: 03/15/18 06:00 Dose: 110 mls/hr Morphine Sulfate (Morphine) 2 mg IVP Q4 PRN PRN Reason: Pain, moderate (4-7) Last Admin: 03/15/18 03:34 Dose: 2 mg Ondansetron HCl (Zofran Inj) 4 mg IVP Q6H PRN PRN Reason: Nausea/Vomiting Pantoprazole Sodium (Protonix Inj) 40 mg IVP DAILY [facility] Last Admin: 03/14/18 13:00 Dose: 40 mg Pneumococcal Polyvalent Vaccine (Pneumovax 23 Vaccine) 0.5 ml IM .ONCE ONE Stop: 03/15/18 10:01 - Labs Labs: 03/15/18 06:15 03/15/18 06:15 PT 12.7 SECONDS (9.7-12.2) H 03/13/18 11:11 INR 1.2 03/13/18 11:11 APTT 33 SECONDS (21-34) 03/13/18 11:11 - Constitutional Appears: Non-toxic, No Acute Distress - Head Exam Head Exam: NORMOCEPHALIC - Eye Exam Eye Exam: Normal appearance - ENT Exam ENT Exam: Mucous Membranes Moist - Neck Exam Neck Exam: absent: Tenderness Additional comments: no crepitus - Respiratory Exam Respiratory Exam: NORMAL BREATHING PATTERN. absent: Accessory Muscle Use, Respiratory Distress - Cardiovascular Exam Cardiovascular Exam: REGULAR RHYTHM. absent: Tachycardia - GI/Abdominal Exam GI & Abdominal Exam: Soft. absent: Distended, Tenderness Assessment and Plan - Assessment and Plan (Free Text) Assessment: 32M with pneumomediastinum Plan: intussusception no longer seen on repeat scan - was likely peristalsis for barium esophogram today to rule out perforation though unlikely if negative can slowly ADAT with d/c planning will follow d/w Dr Tracy Perla, PGY4 <Trenton Molina - Last Filed: 03/15/18 17:19> Objective - Vital Signs/Intake and Output Vital Signs (last 24 hours): Temp Pulse Resp BP Pulse Ox 97.6 F 69 20 115/74 96 03/15/18 15:16 03/15/18 15:16 03/15/18 15:16 03/15/18 15:16 03/15/18 15:16 Intake and Output: 03/15/18 03/15/18 06:59 18:59 Intake Total 860 1200 Balance 860 1200 - Medications Medications: Current Medications Famotidine (Pepcid) 20 mg IVP DAILY [facility] Last Admin: 03/15/18 09:37 Dose: 20 mg Meropenem 1 gm/ Sodium (Chloride) 100 mls @ 100 mls/hr IVPB Q8H [facility]; Protocol Last Admin: 03/15/18 11:24 Dose: 100 mls/hr Potassium Chloride/Dextrose/Sod Cl (Potassium Chl 20 Meq In D5-1/2ns) 1,000 mls @ 110 mls/hr IV .Q9H6M [facility] Last Admin: 03/15/18 06:00 Dose: 110 mls/hr Metronidazole (Flagyl) 500 mg in 100 mls @ 100 mls/hr IVPB Q8H [facility]; Protocol Morphine Sulfate (Morphine) 2 mg IVP Q4 PRN PRN Reason: Pain, moderate (4-7) Last Admin: 03/15/18 03:34 Dose: 2 mg Ondansetron HCl (Zofran Inj) 4 mg IVP Q6H PRN PRN Reason: Nausea/Vomiting Pantoprazole Sodium (Protonix Inj) 40 mg IVP DAILY [facility] Last Admin: 03/15/18 09:37 Dose: 40 mg - Labs Labs: 03/15/18 06:15 03/15/18 06:15 PT 12.7 SECONDS (9.7-12.2) H 03/13/18 11:11 INR 1.2 03/13/18 11:11 APTT 33 SECONDS (21-34) 03/13/18 11:11 Attending/Attestation - Attestation I have personally seen and examined this patient.: Yes I have fully participated in the care of the patient.: Yes I have reviewed all pertinent clinical information, including history, physical exam and plan: Yes Notes (Text): Pt was seen and examined at bedside Agree with above note and assessment Pt is improved significantly Barium swallow in suggestive of no leak Start liquid diet Can be DC Home with PO antibiotics Levaquin and Clindamycin for 7 days. f/u with Dr. Linn as out pt Plan d.w pt in detail Risk and benefit explained in detail.
[2018-03-15] MEDS: metroNIDAZOLE IV 500 mg/100 ml 500 MG/100 ML BAG IVPB SCH ×2 (08:04→17:28)
[2018-03-15 08:17] LABS: HEPATITIS B SURFACE AG Negative (NEGATIVE)
[2018-03-15 08:24] LABS: HEPATITIS A IGM NEGATIVE (NEGATIVE); HEPATITIS B CORE AB NEGATIVE (NEGATIVE)
[2018-03-15] MEDS ORDERED: Iohexol 240 200 ML ONE (08:27)
[2018-03-15 08:35] LABS: HEPATITIS C ANTIBODY NEGATIVE (NEGATIVE)
--- NOTE | 2018-03-15 09:57 | RAD ---
Date of service: 03/15/2018 PROCEDURE: Limited single contrast esophagram HISTORY: Pneumomediastinum. COMPARISON: None available. TECHNIQUE: Fluoroscopic evaluation of the esophagus was performed following administration of oral contrast. FINDINGS: Esophagus: Grossly unremarkable. No evidence of contrast extravasation or leak. IMPRESSION: Limited single contrast esophagram was performed to evaluate for leak. No evidence of esophageal leak was demonstrated. Contrast flowed freely through the esophagus into the stomach and proximal small bowel.
[2018-03-15] MEDS ORDERED: Pneumococcal 23-Valent Vaccine IM ONE (10:00)
--- NOTE | 2018-03-15 11:39 | CP.PCM.PN ---
Subjective - Date & Time of Evaluation Date of Evaluation: 03/15/18 Time of Evaluation: 07:00 - Subjective Subjective: afeb no chest pain or vomiting Objective - Vital Signs/Intake and Output Vital Signs (last 24 hours): Temp Pulse Resp BP Pulse Ox 97.8 F 54 L 18 114/64 99 03/15/18 08:00 03/15/18 08:00 03/15/18 08:00 03/15/18 08:00 03/15/18 07:00 Intake and Output: 03/15/18 03/15/18 06:59 18:59 Intake Total 860 Balance 860 - Medications Medications: Current Medications Famotidine (Pepcid) 20 mg IVP DAILY [facility] Last Admin: 03/15/18 09:37 Dose: 20 mg Meropenem 1 gm/ Sodium (Chloride) 100 mls @ 100 mls/hr IVPB Q8H [facility]; Protocol Last Admin: 03/15/18 11:24 Dose: 100 mls/hr Potassium Chloride/Dextrose/Sod Cl (Potassium Chl 20 Meq In D5-1/2ns) 1,000 mls @ 110 mls/hr IV .Q9H6M [facility] Last Admin: 03/15/18 06:00 Dose: 110 mls/hr Metronidazole (Flagyl) 500 mg in 100 mls @ 100 mls/hr IVPB Q8H [facility]; Protocol Morphine Sulfate (Morphine) 2 mg IVP Q4 PRN PRN Reason: Pain, moderate (4-7) Last Admin: 03/15/18 03:34 Dose: 2 mg Ondansetron HCl (Zofran Inj) 4 mg IVP Q6H PRN PRN Reason: Nausea/Vomiting Pantoprazole Sodium (Protonix Inj) 40 mg IVP DAILY [facility] Last Admin: 03/15/18 09:37 Dose: 40 mg - Labs Labs: 03/15/18 06:15 03/15/18 06:15 PT 12.7 SECONDS (9.7-12.2) H 03/13/18 11:11 INR 1.2 03/13/18 11:11 APTT 33 SECONDS (21-34) 03/13/18 11:11 - Constitutional Appears: Non-toxic, Chronically Ill - Head Exam Head Exam: NORMOCEPHALIC - Eye Exam Eye Exam: PERRL - ENT Exam ENT Exam: Mucous Membranes Dry - Neck Exam Neck Exam: absent: Lymphadenopathy - Respiratory Exam Respiratory Exam: Decreased Breath Sounds - Cardiovascular Exam Cardiovascular Exam: REGULAR RHYTHM - GI/Abdominal Exam GI & Abdominal Exam: Distended, Soft Assessment and Plan (1) Abdominal pain Status: Acute (2) Pneumomediastinum Status: Acute (3) Gastritis Status: Acute
[2018-03-15 16:17] VITALS: RESP 20
--- NOTE | 2018-03-15 19:21 | CP.PCM.PN ---
Subjective - Date & Time of Evaluation Date of Evaluation: 03/15/18 Time of Evaluation: 12:45 - Subjective Subjective: clinically same Objective - Vital Signs/Intake and Output Vital Signs (last 24 hours): Temp Pulse Resp BP Pulse Ox 97.6 F 69 20 115/74 96 03/15/18 15:16 03/15/18 15:16 03/15/18 15:16 03/15/18 15:16 03/15/18 15:16 Intake and Output: 03/15/18 03/16/18 18:59 06:59 Intake Total 1200 Balance 1200 - Medications Medications: Current Medications Famotidine (Pepcid) 20 mg IVP DAILY [facility] Last Admin: 03/15/18 09:37 Dose: 20 mg Meropenem 1 gm/ Sodium (Chloride) 100 mls @ 100 mls/hr IVPB Q8H [facility]; Protocol Last Admin: 03/15/18 19:12 Dose: 100 mls/hr Potassium Chloride/Dextrose/Sod Cl (Potassium Chl 20 Meq In D5-1/2ns) 1,000 mls @ 110 mls/hr IV .Q9H6M [facility] Last Admin: 03/15/18 06:00 Dose: 110 mls/hr Metronidazole (Flagyl) 500 mg in 100 mls @ 100 mls/hr IVPB Q8H [facility]; Protocol Last Admin: 03/15/18 17:28 Dose: 100 mls/hr Morphine Sulfate (Morphine) 2 mg IVP Q4 PRN PRN Reason: Pain, moderate (4-7) Last Admin: 03/15/18 03:34 Dose: 2 mg Ondansetron HCl (Zofran Inj) 4 mg IVP Q6H PRN PRN Reason: Nausea/Vomiting Pantoprazole Sodium (Protonix Inj) 40 mg IVP DAILY [facility] Last Admin: 03/15/18 09:37 Dose: 40 mg - Labs Labs: 03/15/18 06:15 03/15/18 06:15 PT 12.7 SECONDS (9.7-12.2) H 03/13/18 11:11 INR 1.2 03/13/18 11:11 APTT 33 SECONDS (21-34) 03/13/18 11:11
[2018-03-16] MEDS: metroNIDAZOLE IV 500 mg/100 ml 500 MG/100 ML BAG IVPB SCH ×2 (00:39→07:03)
[2018-03-16] MEDS: Potassium Ch 20mEq in D5-1/2NS 1,000 ML IV SCH ×2 (01:27→10:08)
[2018-03-16] MEDS: Meropenem 1 GM in Sodium Chloride 0.9% 100 ML IVPB SCH ×2 (03:17→10:07)
[2018-03-16 06:44] LABS: BASO % 0.6 % (0.0-2.0); EOS # 0.1 K/uL (0.0-0.7); EOS % 1.8 % (0.0-4.0); HEMOGLOBIN 13.3 g/dL (12.0-18.0); LYMPH # 1.3 K/uL (1.0-4.3); MEAN CELL VOLUME 91.7 fL (80.0-94.0); MEAN CORPUSCULAR HEMOGLOBIN 32.8 pg (27.0-31.0); MEAN CORPUSCULAR HGB CONC 35.7 g/dL (33.0-37.0); MEAN PLATELET VOLUME 9.1 fL (7.2-11.7); MONO # 0.5 K/uL (0.0-0.8); MONO % 9.3 % (0.0-10.0); NEUT # 3.6 K/uL (1.8-7.0); NEUT % 64.3 % (50.0-75.0); NRBC % 0.1 % (0.0-2.0); RBC 4.07 Mil/uL (4.40-5.90); WHITE BLOOD COUNT 5.6 K/uL (4.8-10.8)
[2018-03-16 08:12] LABS: BLOOD UREA NITROGEN 11 mg/dL (9-20); CALCIUM 8.8 mg/dl (8.6-10.4); GFR NON-AFRICAN AMERICAN > 60
[2018-03-16 08:24] VITALS: BP 113/68; TEMP 98; O2SAT 99
[2018-03-16 11:25] VITALS: PULSE 62
--- NOTE | 2018-03-16 12:15 | CP.PCM.PN ---
Subjective - Date & Time of Evaluation Date of Evaluation: 03/16/18 Time of Evaluation: 09:00 - Subjective Subjective: improving no fever or chest pain Objective - Vital Signs/Intake and Output Vital Signs (last 24 hours): Temp Pulse Resp BP Pulse Ox 98.0 F 62 20 113/68 99 03/16/18 08:23 03/16/18 09:00 03/16/18 08:23 03/16/18 08:23 03/16/18 08:23 Intake and Output: 03/16/18 03/16/18 06:59 18:59 Intake Total 1300 Balance 1300 - Medications Medications: Current Medications Famotidine (Pepcid) 20 mg IVP DAILY [facility] Last Admin: 03/16/18 10:07 Dose: 20 mg Meropenem 1 gm/ Sodium (Chloride) 100 mls @ 100 mls/hr IVPB Q8H [facility]; Protocol Last Admin: 03/16/18 10:07 Dose: 100 mls/hr Potassium Chloride/Dextrose/Sod Cl (Potassium Chl 20 Meq In D5-1/2ns) 1,000 mls @ 110 mls/hr IV .Q9H6M [facility] Last Admin: 03/16/18 10:08 Dose: 110 mls/hr Metronidazole (Flagyl) 500 mg in 100 mls @ 100 mls/hr IVPB Q8H [facility]; Protocol Last Admin: 03/16/18 07:03 Dose: 100 mls/hr Morphine Sulfate (Morphine) 2 mg IVP Q4 PRN PRN Reason: Pain, moderate (4-7) Last Admin: 03/16/18 00:13 Dose: 2 mg Ondansetron HCl (Zofran Inj) 4 mg IVP Q6H PRN PRN Reason: Nausea/Vomiting Last Admin: 03/16/18 03:24 Dose: 4 mg Pantoprazole Sodium (Protonix Inj) 40 mg IVP DAILY [facility] Last Admin: 03/16/18 10:07 Dose: 40 mg - Labs Labs: 03/16/18 06:38 03/16/18 06:38 PT 12.7 SECONDS (9.7-12.2) H 03/13/18 11:11 INR 1.2 03/13/18 11:11 APTT 33 SECONDS (21-34) 03/13/18 11:11 - Constitutional Appears: Non-toxic, Chronically Ill - Head Exam Head Exam: NORMOCEPHALIC - Eye Exam Eye Exam: PERRL - ENT Exam ENT Exam: Mucous Membranes Dry - Neck Exam Neck Exam: absent: Lymphadenopathy - Respiratory Exam Respiratory Exam: Decreased Breath Sounds - Cardiovascular Exam Cardiovascular Exam: REGULAR RHYTHM - GI/Abdominal Exam GI & Abdominal Exam: Distended - Rectal Exam Rectal Exam: Deferred Assessment and Plan (1) Abdominal pain Status: Acute (2) Pneumomediastinum Status: Acute (3) Gastritis Status: Acute
--- NOTE | 2018-03-16 14:38 | CP.PCM.PN ---
Subjective - Date & Time of Evaluation Date of Evaluation: 03/16/18 Time of Evaluation: 13:15 - Subjective Subjective: clinically same Objective - Vital Signs/Intake and Output Vital Signs (last 24 hours): Temp Pulse Resp BP Pulse Ox 98.0 F 62 20 113/68 99 03/16/18 08:23 03/16/18 09:00 03/16/18 08:23 03/16/18 08:23 03/16/18 08:23 Intake and Output: 03/16/18 03/16/18 06:59 18:59 Intake Total 1300 Balance 1300 - Medications Medications: Current Medications Famotidine (Pepcid) 20 mg IVP DAILY [facility] Last Admin: 03/16/18 10:07 Dose: 20 mg Meropenem 1 gm/ Sodium (Chloride) 100 mls @ 100 mls/hr IVPB Q8H [facility]; Protocol Last Admin: 03/16/18 10:07 Dose: 100 mls/hr Potassium Chloride/Dextrose/Sod Cl (Potassium Chl 20 Meq In D5-1/2ns) 1,000 mls @ 110 mls/hr IV .Q9H6M [facility] Last Admin: 03/16/18 10:08 Dose: 110 mls/hr Metronidazole (Flagyl) 500 mg in 100 mls @ 100 mls/hr IVPB Q8H [facility]; Protocol Last Admin: 03/16/18 07:03 Dose: 100 mls/hr Morphine Sulfate (Morphine) 2 mg IVP Q4 PRN PRN Reason: Pain, moderate (4-7) Last Admin: 03/16/18 00:13 Dose: 2 mg Ondansetron HCl (Zofran Inj) 4 mg IVP Q6H PRN PRN Reason: Nausea/Vomiting Last Admin: 03/16/18 03:24 Dose: 4 mg Pantoprazole Sodium (Protonix Inj) 40 mg IVP DAILY [facility] Last Admin: 03/16/18 10:07 Dose: 40 mg - Labs Labs: 03/16/18 06:38 03/16/18 06:38 PT 12.7 SECONDS (9.7-12.2) H 03/13/18 11:11 INR 1.2 03/13/18 11:11 APTT 33 SECONDS (21-34) 03/13/18 11:11
--- NOTE | 2018-03-16 15:33 | CP.PCM.PN ---
Subjective - Date & Time of Evaluation Date of Evaluation: 03/16/18 Time of Evaluation: 15:29 - Subjective Subjective: PT CLEARED FOR D/C HOME TODAY PER DR. CHANDRA. PT WAS CLEARED BY SURGICAL TEAM YESTERDAY. RX GIVEN FOR CLINDA AND LEVOFLOXACIN FOR 10 DAYS. TO F/U WITH DR. GROVER IN THE OFFICE. NO FURTHER ORDERS. -FOLLOW UP WITH DR. Liliana CHANDRA IN THE OFFICE WITHIN 5-7 DAYS---CALL THE OFFICE TO MAKE AN APPOINTMENT. -FOLLOW UP WITH THE CHEST SURGEON, DR. GROVER, IN THE OFFICE WITHIN 10-14 DAYS---CALL THE OFFICE TO MAKE AN APPOINTMENT. -NO SOLID FOOD FOR 1-2 WEEKS---YOU SHOULD BE ON A STRICT LIQUID DIET FOR THIS TIME PERIOD: SOUPS, BROTHS, JELLO, PUDDING, WATER. -YOU HAVE BEEN PRESCRIBED THE FOLLOWING ANTIBIOTICS; TAKE PRESCRIBED: 1) CLINDAMYCIN 300 MG---TAKE 1 CAPSULE BY MOUTH THREE TIMES A DAY (WITH BREAKFAST, LUNCH, DINNER) FOR 10 DAYS. 2) LEVOFLOXACIN 500 MG---TAKE 1 TABLET BY MOUTH ONCE A DAY FOR 10 DAYS. -IF YOU HAVE ANY FURTHER QUESTIONS OR CONCERNS, CONTACT DR. Jeanette CHANDRA'S OFFICE. Objective - Vital Signs/Intake and Output Vital Signs (last 24 hours): Temp Pulse Resp BP Pulse Ox 98.0 F 62 20 113/68 99 03/16/18 08:23 03/16/18 09:00 03/16/18 08:23 03/16/18 08:23 03/16/18 08:23 Intake and Output: 03/16/18 03/16/18 06:59 18:59 Intake Total 1300 Balance 1300 - Medications Medications: Current Medications Famotidine (Pepcid) 20 mg IVP DAILY [facility] Last Admin: 03/16/18 10:07 Dose: 20 mg Meropenem 1 gm/ Sodium (Chloride) 100 mls @ 100 mls/hr IVPB Q8H [facility]; Protocol Last Admin: 03/16/18 10:07 Dose: 100 mls/hr Potassium Chloride/Dextrose/Sod Cl (Potassium Chl 20 Meq In D5-1/2ns) 1,000 mls @ 110 mls/hr IV .Q9H6M [facility] Last Admin: 03/16/18 10:08 Dose: 110 mls/hr Metronidazole (Flagyl) 500 mg in 100 mls @ 100 mls/hr IVPB Q8H [facility]; Protocol Last Admin: 03/16/18 07:03 Dose: 100 mls/hr Morphine Sulfate (Morphine) 2 mg IVP Q4 PRN PRN Reason: Pain, moderate (4-7) Last Admin: 03/16/18 00:13 Dose: 2 mg Ondansetron HCl (Zofran Inj) 4 mg IVP Q6H PRN PRN Reason: Nausea/Vomiting Last Admin: 03/16/18 03:24 Dose: 4 mg Pantoprazole Sodium (Protonix Inj) 40 mg IVP DAILY [facility] Last Admin: 03/16/18 10:07 Dose: 40 mg - Labs Labs: 03/16/18 06:38 03/16/18 06:38 PT 12.7 SECONDS (9.7-12.2) H 03/13/18 11:11 INR 1.2 03/13/18 11:11 APTT 33 SECONDS (21-34) 03/13/18 11:11
--- NOTE | 2018-03-16 19:40 | CARD ---
APPROVED REPORT Date of service: 03/13/2018 EKG Measurement Heart [id number] <Conclusion> Sinus tachycardia Rightward axis Borderline ECG
== END 2018-03-16 16:34 | disposition home or self-care (01) | DRG 389 ==
LOC: C.ER 23:21 → C.9E 03-13 06:13 → C.3T 03-13 08:31 → C.9I 03-13 12:11 → C.6T 03-14 04:45
PROVIDERS: ADMIT Internal Medicine Nephrology; ATTEND Internal Medicine Nephrology
DX: K56.1 Intussusception (principal); J98.2 Interstitial emphysema; A05.9 Bacterial foodborne intoxication, unspecified; K29.70 Gastritis, unspecified, without bleeding; N17.9 Acute kidney failure, unspecified; F12.90 Cannabis use, unspecified, uncomplicated; K21.9 Gastro-esophageal reflux disease without esophagitis; Z90.49 Acquired absence of other specified parts of digestive tract